=== PATIENT | male | born 1970 | race Caucasian/White ===

== ENCOUNTER 2017-02-01 22:46 | Emergency (ER) | payer OTHER, SELFPAY ==
[2017-02-01] MEDS ORDERED: BABY ASPIRIN 81 MG CHEW PO ONE (23:12)
[2017-02-01] MEDS ORDERED: Nitrostat 0.4 MG (ED) SL ONE ×3 (23:12→23:55)
[2017-02-01] MEDS ORDERED: Sodium Chloride 0.9% 1000 ML 1,000 ML IV SCH (23:15)
[2017-02-01] MEDS ORDERED: BABY ASPIRIN 81 MG CHEW ONE (23:18)
[2017-02-01] MEDS ORDERED: Sodium Chloride 0.9% 1000 ML 1,000 ML ONE (23:18)
[2017-02-01 23:22] LABS: BASOPHIL % 0.5 % (0.0-0.4); Eosinophil % 2.5 % (0.00-5.0); Lymphocytes % 34.1 % (24.0-44.0); Mean Cell Volume 93.3 fl (78-100); Mean Corpuscular Hemoglobin 31.6 pg (26-32); Mean Platelet Volume 12.4 fl (6-9.5); Monocytes % 8.9 % (0.0-12.0); Platelet Count 173 K/mm3 (150-450); Red Blood Count 4.49 M/mm3 (4.1-5.6); Red Cell Distribution Width 13.7 % (11.5-14.0)
--- NOTE | 2017-02-01 23:25 | ERPHSYRPT ---
- History of Present Illness Time Seen by Provider: 02/01/17 23:05 Source: patient Exam Limitations: no limitations Patient Subjective Stated Complaint: pt states hes been having chest pain for 2 days. states pain today radiated down lt arm and he began having shortness of breath. Triage Nursing Assessment: pt alert and oriented. answers questions approp. pt ambulatory with steady gait noted. skin pink, warm and dry. respirations nonlabored with lungs cta. heart rate 62 sinus rhthym on monitor with occasional pvc's noted. Physician History: FOR THE PAST 2 DAYS PT HAS HAD CONSTANT ACHY LEFT ANTERIOR CHEST PAIN WITH RADIATION TO THE LEFT WRIST AND BACK, SHORTNESS OF AIR AND DIZZINESS; DENIES FEVER, COUGH, ABDOMINAL PAIN, NAUSEA, VOMITING, DIAPHORESIS. Allergies/Adverse Reactions: Penicillins Allergy (Verified 02/01/17 23:03) Home Medications: No Home Meds 1 ea [facility] UD 02/01/17 [History] Hx Tetanus, Diphtheria Vaccination/Date Given: Yes (unknown) Hx Influenza Vaccination/Date Given: No Hx Pneumococcal Vaccination/Date Given: No Immunizations Up to Date: Yes - Review of Systems Constitutional: No Fever Respiratory: Dyspnea, No Cough Cardiac: Chest Pain Abdominal/Gastrointestinal: No Nausea, No Vomiting Musculoskeletal: Back Pain, Other (LEFT ARM PAIN) Neurological: Dizziness Endocrine: No Excessive Sweating All Other Systems: Reviewed and Negative - Past Medical History Pertinent Past Medical History: No Neurological History: Other - Past Surgical History Past Surgical History: Yes Gastrointestinal: Hernia Repair - Social History Smoking Status: Current every day smoker How long have you smoked: 22 Exposure to second hand smoke: Yes Drug Use: none Patient Lives Alone: No - Nursing Vital Signs Nursing Vital Signs: Initial Vital Signs Temperature 97.7 F Temperature Source Oral Pulse Rate [] 62 Pulse Rate 51 Respiratory Rate 20 Blood Pressure [] 104/63 Pain Intensity 4 - Physical Exam General Appearance: alert Eye Exam: PERRL/EOMI, eyes nml inspection Ears, Nose, Throat Exam: TMs normal, dry mucous membranes Neck Exam: normal inspection Respiratory Exam: lungs clear Cardiovascular Exam: normal heart sounds Gastrointestinal/Abdomen Exam: soft, normal bowel sounds Back Exam: normal range of motion Extremity Exam: normal inspection, No pedal edema Neurologic Exam: alert, cooperative Skin Exam: warm, dry SpO2 Interpretation: normal SpO2: 98 Oxygen Delivery: Room Air - Course Nursing assessment & vital signs reviewed: Yes EKG Interpreted by Me: RATE (60), Sinus Rhythm, NORMAL AXIS, NORMAL INTERVALS - Radiology Exams Chest X-ray Interpretation: Interpreted by me, No Pneumonia Ordered Tests: Active Orders 24 hr Category Date Time Status Warp Doffer STAT Care 02/01/17 23:12 Active EKG-ER Only STAT Care 02/01/17 23:12 Active IV Insertion STAT Care 02/01/17 23:12 Active Oxygen-ED Only NASAL CANNULA 2 lpm Care 02/01/17 23:12 Active Pulse Oximetry (ED) STAT Care 02/01/17 23:12 Active CHEST 1 VIEW (PORTABLE) Stat Exams 02/01/17 23:12 Taken AMYLASE Stat Lab 02/01/17 23:00 Completed CBC W DIFF Stat Lab 02/01/17 23:00 Completed CMP Stat Lab 02/01/17 23:00 Completed LIPASE Stat Lab 02/01/17 23:00 Completed MAGNESIUM Stat Lab 02/01/17 23:00 Completed NT PRO BNP Stat Lab 02/01/17 23:00 Completed TROPONIN Q3H Lab 02/01/17 23:00 Completed TROPONIN Q3H Lab 02/02/17 02:15 Ordered TROPONIN Q3H Lab 02/02/17 05:15 Ordered TROPONIN Q3H Lab 02/02/17 08:15 Ordered TROPONIN Q3H Lab 02/02/17 11:15 Ordered UA W/RFX UR CULTURE Stat Lab 02/01/17 01:25 Completed Urine Triage Profile Stat Lab 02/01/17 01:25 Received Medication Summary Generic Name Dose Route Start Last Admin Trade Name Freq PRN Reason Stop Dose Admin Sodium Chloride 1,000 mls @ 100 mls/hr 02/01/17 23:15 02/01/17 23:23 Sodium Chloride 0.9% 1000 Ml IV 03/03/17 23:14 100 mls/hr .Q10H RAND Administration Discontinued Medications Generic Name Dose Route Start Last Admin Trade Name Freq PRN Reason Stop Dose Admin Aspirin 324 mg 02/01/17 23:12 02/01/17 23:23 Baby Aspirin 81 Mg Chew PO 02/01/17 23:13 324 mg STAT ONE Administration Aspirin Confirm 02/01/17 23:18 Baby Aspirin 81 Mg Chew Administered 02/01/17 23:19 Dose 324 mg .ROUTE .STK-MED ONE Sodium Chloride 1,000 mls @ 999 mls/hr 02/02/17 00:07 Sodium Chloride 0.9% 1000 Ml IV 02/02/17 01:07 .Q1H1M STA Ketorolac Tromethamine 30 mg 02/02/17 01:29 02/02/17 01:32 Toradol 30 Mg Injection IV 02/02/17 01:30 30 mg STAT ONE Administration Ketorolac Tromethamine Confirm 02/02/17 01:31 Toradol 30 Mg Injection Administered 02/02/17 01:32 Dose 30 mg .ROUTE .STK-MED ONE Nitroglycerin 0.4 mg 02/01/17 23:12 02/01/17 23:23 Nitrostat 0.4 Mg (Ed) SL 02/01/17 23:13 0.4 mg STAT ONE Administration Nitroglycerin Confirm 02/01/17 23:18 Nitrostat 0.4 Mg (Ed) Administered 02/01/17 23:19 Dose 0.4 mg SL .STK-MED ONE Nitroglycerin 0.4 mg 02/01/17 23:55 02/01/17 23:58 Nitrostat 0.4 Mg (Ed) SL 02/01/17 23:56 0.4 mg STAT ONE Administration Nitroglycerin 0.4 mg 02/02/17 00:13 02/02/17 00:16 Nitrostat 0.4 Mg (Ed) SL 02/02/17 00:14 0.4 mg STAT ONE Administration Lab/Rad Data: Laboratory Result Diagrams 02/01/17 23:00 02/01/17 23:00 Laboratory Results 02/01/17 02/01/17 02/01/17 Range/Units 23:00 23:00 23:00 WBC 6.0 (4.0-10.5) K/mm3 RBC 4.49 (4.1-5.6) M/mm3 Hgb 14.2 (12.5-18.0) gm/dl Hct 41.9 L (42-50) % MCV 93.3 (78-100) fl MCH 31.6 (26-32) pg MCHC 33.9 (32-36) g/dl RDW 13.7 (11.5-14.0) % Plt Count 173 (150-450) K/mm3 MPV 12.4 H (6-9.5) fl Gran % 54.0 (36.0-66.0) % Lymphocytes % 34.1 (24.0-44.0) % Monocytes % 8.9 (0.0-12.0) % Eosinophils % 2.5 (0.00-5.0) % Basophils % 0.5 (0.0-0.4) % Basophils # 0.03 (0-0.4) Sodium 141 (136-145) mEq/L Potassium 3.8 (3.5-5.1) mEq/L Chloride 106 (98-107) mEq/L Carbon Dioxide 26.9 (21-32) mEq/L Anion Gap 11.4 (5-15) MEQ/L BUN 21 H (9-20) mg/dL Creatinine 1.17 (0.55-1.30) mg/dl Estimated GFR > 60 ML/MIN Glucose 100 (70-110) MG/DL Calcium 9.3 (8.5-10.1) mg/dL Magnesium 1.9 (1.8-2.4) mg/dL Total Bilirubin 0.70 (0.2-1.0) mg/dL AST 43 H (15-37) U/L ALT 93 H (12-78) U/L Alkaline Phosphatase 58 (46-116) U/L Troponin I < 0.017 (0.000-0.056) ng/ml NT-Pro-B Natriuret Pep 105 (0-125) pg/ml Serum Total Protein 7.7 (6.4-8.2) gm/dL Albumin 3.7 (3.4-5.0) g/dL Amylase 82 (25-115) U/L Lipase 142 (73-393) U/L Ur Collection Type Urine Color (YELLOW) Urine Appearance (CLEAR) Urine pH (5-6) Ur Specific [place] (1.005-1.025) Urine Protein (Negative) Urine Glucose (UA) (NEGATIVE) mg/dL Urine Ketones (NEGATIVE) Urine Nitrite (NEGATIVE) Urine Bilirubin (NEGATIVE) Urine Urobilinogen (0-1) mg/dL Urine WBC (Auto) (NEGATIVE) Urine RBC (Auto) (0-5) Quan/ul Specimen Received 02/01/17 Range/Units 01:25 WBC (4.0-10.5) K/mm3 RBC (4.1-5.6) M/mm3 Hgb (12.5-18.0) gm/dl Hct (42-50) % MCV (78-100) fl MCH (26-32) pg MCHC (32-36) g/dl RDW (11.5-14.0) % Plt Count (150-450) K/mm3 MPV (6-9.5) fl Gran % (36.0-66.0) % Lymphocytes % (24.0-44.0) % Monocytes % (0.0-12.0) % Eosinophils % (0.00-5.0) % Basophils % (0.0-0.4) % Basophils # (0-0.4) Sodium (136-145) mEq/L Potassium (3.5-5.1) mEq/L Chloride (98-107) mEq/L Carbon Dioxide (21-32) mEq/L Anion Gap (5-15) MEQ/L BUN (9-20) mg/dL Creatinine (0.55-1.30) mg/dl Estimated GFR ML/MIN Glucose (70-110) MG/DL Calcium (8.5-10.1) mg/dL Magnesium (1.8-2.4) mg/dL Total Bilirubin (0.2-1.0) mg/dL AST (15-37) U/L ALT (12-78) U/L Alkaline Phosphatase (46-116) U/L Troponin I (0.000-0.056) ng/ml NT-Pro-B Natriuret Pep (0-125) pg/ml Serum Total Protein (6.4-8.2) gm/dL Albumin (3.4-5.0) g/dL Amylase (25-115) U/L Lipase (73-393) U/L Ur Collection Type CLEAN CATCH Urine Color YELLOW (YELLOW) Urine Appearance CLEAR (CLEAR) Urine pH 5.5 (5-6) Ur Specific [place] >=1.030 (1.005-1.025) Urine Protein NEGATIVE (Negative) Urine Glucose (UA) NEGATIVE (NEGATIVE) mg/dL Urine Ketones NEGATIVE (NEGATIVE) Urine Nitrite NEGATIVE (NEGATIVE) Urine Bilirubin NEGATIVE (NEGATIVE) Urine Urobilinogen 2 (0-1) mg/dL Urine WBC (Auto) NEGATIVE (NEGATIVE) Urine RBC (Auto) NEGATIVE (0-5) Quan/ul Specimen Received 02/02/17 0130 - Departure Time of Disposition: 01:49 Departure Disposition: Home Clinical Impression: CHEST PAIN Condition: Fair Critical Care Time: No Referrals: DOCTOR,NO FAMILY [Primary Care Provider] - Instructions: Chest Pain Additional Instructions: FOLLOW UP WITH PRIVATE DOCTOR TOMORROW.
[2017-02-01 23:49] LABS: ALBUMIN 3.7 g/dL (3.4-5.0); ALKALINE PHOSPHATASE 58 U/L (46-116); ANION GAP 11.4 MEQ/L (5-15); BLOOD UREA NITROGEN 21 mg/dL (9-20); CHLORIDE 106 mEq/L (98-107); Carbon Dioxide 26.9 mEq/L (21-32); Glucose 100 MG/DL (70-110); LIPASE 142 U/L (73-393); MAGNESIUM 1.9 mg/dL (1.8-2.4); Potassium 3.8 mEq/L (3.5-5.1); SGOT/AST 43 U/L (15-37); SGPT/ALT 93 U/L (12-78); SODIUM 141 mEq/L (136-145); Total Protein 7.7 gm/dL (6.4-8.2)
[2017-02-02 00:07] VITALS: O2SAT 98
[2017-02-02] MEDS ORDERED: Sodium Chloride 0.9% 1000 ML 1,000 ML IV STA (00:07)
[2017-02-02] MEDS ORDERED: Nitrostat 0.4 MG (ED) SL ONE ×2 (00:13→02:14)
[2017-02-02] MEDS ORDERED: TORAdol 30 mg Injection IV ONE (01:29)
[2017-02-02] MEDS ORDERED: TORAdol 30 mg Injection ONE (01:31)
[2017-02-02 01:36] LABS: ADD URINE CULTURE? NO (NO); COMPLETE URINE MICROSCOPIC? NO; Collection Type CLEAN CATCH; Ph 5.5 (5-6)
[2017-02-02 01:37] VITALS: BP 104/63; PULSE 51
--- NOTE | 2017-02-02 09:50 | XRAY ---
Indication: Chest pain. Comparison: April 19, 2015. Portable chest again hyperinflated and clear with incidental calcified granulomas. Heart is not enlarged. Bony thorax intact. No new/acute findings. Impression: Stable nonacute hyperinflated chest.
== END 2017-02-02 01:55 | disposition home or self-care (01) ==
LOC: ED 22:46
DX: R07.89 Other chest pain (principal); R06.02 Shortness of breath
CPT/HCPCS: 36000; 36415; 71010; 80053; 80307; 81002; 82150; 83690; 83735; 83880; 84484; 85025; 93005; 93041; 96360; 96361; 96374; 96375; 99284; 99285; J1885; A9270-GY

== ENCOUNTER 2018-01-23 16:33 | Emergency (ER) | payer OTHER, SELFPAY ==
[2018-01-23 16:40] VITALS: BP 131/88; PULSE 52; O2SAT 100
[2018-01-23] MEDS ORDERED: TYLENOL EXTRA STRENGTH 500 MG ONE (17:07)
[2018-01-23] MEDS ORDERED: Adacel Vial IM ONE (17:08)
[2018-01-23] MEDS: Adacel Vial IM ONE (17:09)
[2018-01-23] MEDS: TYLENOL EXTRA STRENGTH 500 MG PO ONE (17:10)
--- NOTE | 2018-01-23 17:12 | ERPHSYRPT ---
- History of Present Illness Time Seen by Provider: 01/23/18 17:07 Source: patient Exam Limitations: no limitations Patient Subjective Stated Complaint: Hit in top of head with tree branch, concerned there might be debris in laceration on top of head. Denies LOC. Triage Nursing Assessment: Pt presents to the ED with complaints of laceration on top of head after getting hit by tree branch. Pt states he is only concerned with debris being in wound. No distress noted, no active bleeding noted, skin PWD. Pt denies loss of consciousness. Physician History: Patient presents with small puncture wound to the top of head, that occurred approximately one hour prior to arrival. Patient states he was getting out of his car and there was a tree close by. Patient pulled on the tree and a small branch hit the top of his head resulting in a small puncture wound. Patient noted there was some bleeding initially but that has stopped. Patient denies any loss of consciousness, dizziness, nausea, vomiting, focal/facial symptoms or blurred vision. Patient did have mild headache but denies any other injuries at this time.. Patient last tetanus was more than 10 years ago. Occurred: just prior to arrival Severity: mild Head Injury Location: parietal Method of Injury: direct blow (stab by a small branch) Loss of Consciousness: no loss of consciousness Associated Symptoms: headaches, No nausea, No vomiting, No shortness of breath, No diaphoresis, No loss of appetite, No malaise, No syncope Allergies/Adverse Reactions: Penicillins Allergy (Verified 02/01/17 23:03) Home Medications: No Home Meds [No Home Meds] 1 [facility] TO[facility]A 02/01/17 [History] Hx Tetanus, Diphtheria Vaccination/Date Given: No Hx Influenza Vaccination/Date Given: No Hx Pneumococcal Vaccination/Date Given: No Immunizations Up to Date: No - Review of Systems Constitutional: No Fever, No Chills Eyes: No Symptoms Ears, Nose, & Throat: No Symptoms Respiratory: No Symptoms, No Cough, No Dyspnea Cardiac: No Symptoms, No Chest Pain, No Edema, No Syncope Abdominal/Gastrointestinal: No Symptoms, No Abdominal Pain, No Nausea, No Vomiting, No Diarrhea Genitourinary Symptoms: No Dysuria Musculoskeletal: No Symptoms, No Back Pain, No Neck Pain Skin: Other (small puncture wound on top of head), No Rash Neurological: No Dizziness, No Focal Weakness, No Sensory Changes Psychological: No Symptoms Endocrine: No Symptoms All Other Systems: Reviewed and Negative - Past Medical History Pertinent Past Medical History: No Neurological History: Other - Past Surgical History Past Surgical History: Yes Gastrointestinal: Hernia Repair - Social History Smoking Status: Current every day smoker How long have you smoked: 25 years Exposure to second hand smoke: Yes Drug Use: none Patient Lives Alone: No - Nursing Vital Signs Nursing Vital Signs: Initial Vital Signs Temperature 98.7 F 01/23/18 16:37 Pulse Rate 52 L 01/23/18 16:37 Respiratory Rate 15 01/23/18 16:37 Blood Pressure 131/88 01/23/18 16:37 O2 Sat by Pulse Oximetry 100 01/23/18 16:37 Pain Scale Pain Intensity 8 - Neil Coma Score Best Eye Response (Hope): (4) open spontaneously Best Verbal Response (Neil): (5) oriented Best Motor Response (Hope): (6) obeys commands Hope Total: 15 - Physical Exam General Appearance: no apparent distress, alert Head Injury: tenderness (rotation tendernesswith small puncture wound to top of head, no active bleeding at this time), No active bleeding, No Fitzgerald's Sign, No contusions Eye Exam: bilateral eye: PERRL, EOMI ENT Exam: airway nml Neck Exam: supple, trachea midline, full range of motion, normal alignment, normal inspection Cardiovascular/Respiratory Exam: chest non-tender, normal breath sounds, regular rate/rhythm Gastrointestinal/Abdominal Exam: soft, non tender, no distention Back Exam: normal inspection, No vertebral tenderness Extremity Exam: non-tender, normal range of motion, normal inspection Mental Status Exam: alert, oriented x 3, 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 Exam: normal hearing, normal speech, PERRL Motor/Sensory Exam: no motor deficit, no sensory deficit, CN II-XII intact Skin Exam: normal color, warm, dry, No rash SpO2 Interpretation: normal SpO2: 100 Oxygen Delivery: Room Air - Course Nursing assessment & vital signs reviewed: Yes Ordered Tests: Medication Summary Discontinued Medications Generic Name Dose Route Start Last Admin Trade Name Freq PRN Reason Stop Dose Admin Acetaminophen 1,000 mg 01/23/18 17:04 Tylenol Extra Strength 500 Mg PO 01/23/18 17:05 STAT ONE Diphtheria/Tetanus/Acell Pertussis 0.5 ml 01/23/18 17:04 Adacel Vial IM 01/23/18 17:05 .ONCE ONE - Progress Progress: improved Progress Note: 01/23/18 17:14 patient was updated with tetanus, along with Tylenol 1 g by mouth Counseled pt/family regarding: diagnosis - Departure Time of Disposition: 17:14 Departure Disposition: Home Clinical Impression: Puncture wound of scalp Condition: Stable Critical Care Time: No Referrals: DOCTOR,NO FAMILY [Primary Care Provider] - Instructions: Concussion, Adult (DC), Wound Care (DC) Additional Instructions: may take MotrinTylenol for pain/swelling. Return for worse headache, vomiting, dizziness, altered mental status, difficulty speaking, focal or fascial deficit or any problems
== END 2018-01-23 17:28 | disposition home or self-care (01) ==
LOC: ED 16:33
DX: S01.03XA Puncture wound without foreign body of scalp, initial encounter (principal); R51 Headache; W20.8XXA Other cause of strike by thrown, projected or falling object, initial encounter
CPT/HCPCS: 90471; 90715; 99283; A9270-GY

== ENCOUNTER 2018-05-26 19:38 | Emergency (ER) | payer OTHER ==
[2018-05-26] MEDS ORDERED: Zofran 4 MG/2 ML VIAL IV ONE (20:21)
[2018-05-26] MEDS ORDERED: Hydromorphone 1 mg/ml Ampule IV ONE (20:21)
--- NOTE | 2018-05-26 20:28 | ERPHSYRPT ---
- History of Present Illness Time Seen by Provider: 05/26/18 20:10 Historian: patient Exam Limitations: clinical condition Patient Subjective Stated Complaint: Pain for past week in lower left abdominal quadrant Triage Nursing Assessment: pt c/o of pain in the lower left abdominal quadrant, stated that he had picked a big piece of wood up and it began hurting after, hx of hernia on other side in the 90's, pain with palpation, denies pain with urination, denies flank pain, vitals wnl, pulses normal Physician History: PATIENT WITH A HISTORY OF HERNIA REPAIR IN THE PAST, IS EMPLOYED WITH A [employer] SERVICE, PICKED UP TREE 6 DAYS AGO AND HAS PERSISTENT LEFT LOWER ABDOMINAL PAIN. STATES PAIN INITIALLY WORSE UPON LIFTING NOW OCCURS AT REST. DENIES NAUSEA, EMESIS, URINARY SYMPTOMS, FEVER OR DIARRHEA. Timing/Duration: week(s) Activities at Onset: activity Quality: sharpness, stabbing Abdominal Pain Onset Location: LLQ Severity of Pain-Max: severe Severity of Pain-Current: severe Modifying Factors: Improves With: movement, other (LIFTING) Associated Symptoms: denies symptoms Previous symptoms: no prior history Allergies/Adverse Reactions: Penicillins Allergy (Verified 05/26/18 20:09) Home Medications: No Home Meds [No Home Meds] 1 [facility] 02/01/17 [History] Hx Tetanus, Diphtheria Vaccination/Date Given: No Hx Influenza Vaccination/Date Given: No Hx Pneumococcal Vaccination/Date Given: No - Review of Systems Constitutional: No Fever, No Chills Eyes: No Symptoms Ears, Nose, & Throat: No Symptoms Respiratory: No Cough, No Dyspnea Cardiac: No Chest Pain, No Edema, No Syncope Abdominal/Gastrointestinal: Abdominal Pain, No Nausea, No Vomiting, No Diarrhea Genitourinary Symptoms: No Symptoms, No Dysuria Musculoskeletal: No Symptoms, No Back Pain, No Neck Pain Skin: No Symptoms, No Rash Neurological: No Dizziness, No Focal Weakness, No Sensory Changes Psychological: No Symptoms Endocrine: No Symptoms All Other Systems: Reviewed and Negative - Past Medical History Pertinent Past Medical History: No Neurological History: Other - Past Surgical History Past Surgical History: Yes Gastrointestinal: Hernia Repair Musculoskeletal: Orthopedic Surgery - Social History Smoking Status: Current every day smoker How long have you smoked: 25 years Exposure to second hand smoke: Yes Drug Use: marijuana Patient Lives Alone: No - Nursing Vital Signs Nursing Vital Signs: Initial Vital Signs Temperature 98.0 F 05/26/18 19:53 Pulse Rate 65 05/26/18 19:53 Blood Pressure 115/74 05/26/18 19:53 O2 Sat by Pulse Oximetry 97 05/26/18 19:53 Pain Scale Pain Intensity 4 - Physical Exam General Appearance: mild distress, alert Eye Exam: PERRL/EOMI, eyes nml inspection Ears, Nose, Throat Exam: normal ENT inspection, pharynx normal, moist mucous membranes Neck Exam: normal inspection, non-tender, supple, full range of motion Respiratory Exam: normal breath sounds, lungs clear, No respiratory distress Cardiovascular Exam: regular rate/rhythm, normal heart sounds, other (THERE IS NO GUARDING OR REBOUND TENDERNESS) Gastrointestinal/Abdomen Exam: soft, normal bowel sounds, No tenderness (LEFT LOWER QUAD, MARKED TENDERNESS), No mass Back Exam: normal inspection, normal range of motion, No CVA tenderness, No vertebral tenderness Extremity Exam: normal inspection, normal range of motion, pelvis stable Neurologic Exam: alert, oriented x 3, cooperative, normal mood/affect, nml cerebellar function, sensation nml, No motor deficits Skin Exam: normal color, warm, dry SpO2 Interpretation: normal SpO2: 97 Oxygen Delivery: Room Air - CT Exams Abdomen/Pelvis CT Interpretation: Tele-radiologist Report (NORMAL APPENDIX, NO ACUTE FINDINGS) Ordered Tests: Medication Summary Discontinued Medications Generic Name Dose Route Start Last Admin Trade Name Freq PRN Reason Stop Dose Admin Hydromorphone HCl 1 mg 05/26/18 20:21 05/26/18 21:00 Hydromorphone 1 Mg/Ml Ampule IV 05/26/18 20:22 1 mg STAT ONE Administration Hydromorphone HCl Confirm 05/26/18 20:40 Hydromorphone 1 Mg/Ml Ampule Administered 05/26/18 20:41 Dose 1 mg .ROUTE .STK-MED ONE Sodium Chloride 1,000 mls @ 500 mls/hr 05/26/18 20:30 05/26/18 21:01 Sodium Chloride 0.9% 1000 Ml IV 06/25/18 20:29 500 mls/hr .Q2H RAND Administration Sodium Chloride Confirm 05/26/18 20:40 Sodium Chloride 0.9% 1000 Ml Administered 05/26/18 20:41 Dose 1,000 mls @ ud .ROUTE .STK-MED ONE Ketorolac Tromethamine 30 mg 05/26/18 22:55 05/26/18 23:03 Toradol 30 Mg Injection IV 05/26/18 22:56 30 mg STAT ONE Administration Ketorolac Tromethamine Confirm 05/26/18 23:02 Toradol 30 Mg Injection Administered 05/26/18 23:03 Dose 30 mg .ROUTE .STK-MED ONE Ondansetron HCl 4 mg 05/26/18 20:21 05/26/18 21:01 Zofran 4 Mg/2 Ml Vial IV 05/26/18 20:22 4 mg STAT ONE Administration Ondansetron HCl Confirm 05/26/18 20:40 Zofran 4 Mg/2 Ml Vial Administered 05/26/18 20:41 Dose 4 mg .ROUTE .STK-MED ONE Lab/Rad Data: Laboratory Result Diagrams 05/26/18 21:00 05/26/18 21:00 Laboratory Results 05/26/18 05/26/18 05/26/18 Range/Units 21:00 21:00 20:36 WBC 7.2 (4.0-10.5) K/mm3 RBC 4.42 (4.1-5.6) M/mm3 Hgb 14.6 (12.5-18.0) gm/dl Hct 42.1 (42-50) % MCV 95.2 (78-100) fl MCH 33.0 H (26-32) pg MCHC 34.7 (32-36) g/dl RDW 13.5 (11.5-14.0) % Plt Count 193 (150-450) K/mm3 MPV 11.9 H (6-9.5) fl Gran % 51.0 (36.0-66.0) % Eos # (Auto) 0.31 (0-0.5) Absolute Lymphs (auto) 2.42 (1.0-4.6) Absolute Monos (auto) 0.78 (0.0-1.3) Lymphocytes % 33.5 (24.0-44.0) % Monocytes % 10.8 (0.0-12.0) % Eosinophils % 4.3 (0.00-5.0) % Basophils % 0.4 (0.0-0.4) % Absolute Granulocytes 3.69 (1.4-6.9) Basophils # 0.03 (0-0.4) Sodium 137 (137-145) mmol/L Potassium 5.1 (3.5-5.1) mmol/L Chloride 103 (98-107) mmol/L Carbon Dioxide 27 (22-30) mmol/L Anion Gap 12.3 (5-15) MEQ/L BUN 28 H (9-20) mg/dL Creatinine 0.96 (0.66-1.25) mg/dL Estimated GFR > 60.0 ML/MIN Glucose 103 (74-106) mg/dL Calcium 9.1 (8.4-10.2) mg/dL Ur Collection Type VOID Urine Color YELLOW (YELLOW) Urine Appearance CLEAR (CLEAR) Urine pH 6.5 (5-6) Ur Specific [place] 1.020 (1.005-1.025) Urine Protein NEGATIVE (Negative) Urine Ketones SMALL (NEGATIVE) Urine Blood NEGATIVE (0-5) Quan/ul Urine Nitrite NEGATIVE (NEGATIVE) Urine Bilirubin NEGATIVE (NEGATIVE) Urine Urobilinogen 4 (0-1) mg/dL Ur Leukocyte Esterase NEGATIVE (NEGATIVE) Urine Microscopic WBC 0-2 (0-5) /HPF Ur Epithelial Cells RARE (FEW) /HPF Urine Culture Reflexed NO (NO) Urine Glucose NEGATIVE (NEGATIVE) mg/dL - Progress Progress: improved Progress Note: 05/26/18 23:02 IV NORMAL SALINE 500ML/HR, ZOFRAN 4MG, DILAUDID 1MG IV ALL LAB TEST REVIEWED AND ARE NORMAL Counseled pt/family regarding: lab results, diagnosis, need for follow-up, rad results - Departure Time of Disposition: 23:16 Departure Disposition: Home Clinical Impression: ABDOMINAL PAIN Condition: Stable Critical Care Time: No Referrals: DOCTOR,NO FAMILY [Primary Care Provider] - Additional Instructions: FOLLOWUP WITH A FAMILY PHYSICIAN AND GENERAL SURGEON FOR EVALUATION OF HERNIA. WORK RESTRICTION NO LIFTING OVER Prescriptions: Ketorolac Tromethamine [Toradol] 10 mg PO Q6H PRN PRN #20 tablet PRN Reason: Pain Oxycodone HCl/Acetaminophen [Percocet 10-325 mg Tablet] 1 each PO Q6HPRN PRN # 10 tablet MDD 4 PRN Reason: Pain
[2018-05-26] MEDS ORDERED: Sodium Chloride 0.9% 1000 ML 1,000 ML IV SCH (20:30)
[2018-05-26] MEDS ORDERED: Hydromorphone 1 mg/ml Ampule ONE (20:40)
[2018-05-26] MEDS ORDERED: Zofran 4 MG/2 ML VIAL ONE (20:40)
[2018-05-26] MEDS ORDERED: Sodium Chloride 0.9% 1000 ML 1,000 ML ONE (20:40)
[2018-05-26 21:05] VITALS: PULSE 64
[2018-05-26 21:29] LABS: BASOPHIL % 0.4 % (0.0-0.4); Basophil (Absolute #) 0.03 (0-0.4); Eosinophil % 4.3 % (0.00-5.0); Eosinophil (Absolute #) 0.31 (0-0.5); Granulocyte Absolute (ANC) 3.69 (1.4-6.9); Hematocrit 42.1 % (42-50); Hemoglobin 14.6 gm/dl (12.5-18.0); Lymphocyte (Absolute #) 2.42 (1.0-4.6); Lymphocytes % 33.5 % (24.0-44.0); Mean Cell Volume 95.2 fl (78-100); Mean Corpuscular Hgb Concent. 34.7 g/dl (32-36); Mean Platelet Volume 11.9 fl (6-9.5); Monocyte (Absolute #) 0.78 (0.0-1.3); Monocytes % 10.8 % (0.0-12.0); Platelet Count 193 K/mm3 (150-450); Red Blood Count 4.42 M/mm3 (4.1-5.6); Red Cell Distribution Width 13.5 % (11.5-14.0); White Blood Count 7.2 K/mm3 (4.0-10.5)
[2018-05-26 21:30] LABS: Appearance CLEAR (CLEAR)
[2018-05-26 21:31] LABS: Bilirubin NEGATIVE (NEGATIVE); Blood NEGATIVE Ery/ul (0-5); Epithelial Cells RARE /HPF (FEW); Glucose NEGATIVE (NEGATIVE); Ketones SMALL (NEGATIVE); Leukocyte Esterase NEGATIVE (NEGATIVE); Nitrite NEGATIVE (NEGATIVE); Ph 6.5 (5-6); Protein,Urine Dip NEGATIVE (Negative); Urobilinogen 4 mg/dL (0-1); WBC 0-2 /HPF (0-5)
[2018-05-26 21:48] LABS: ANION GAP 12.3 MEQ/L (5-15); BLOOD UREA NITROGEN 28 mg/dL (9-20); CHLORIDE 103 mmol/L (98-107); Calcium 9.1 mg/dL (8.4-10.2); Carbon Dioxide 27 mmol/L (22-30); Creatinine 1 0.96 mg/dL (0.66-1.25); Glucose 103 mg/dL (74-106); Potassium 5.1 mmol/L (3.5-5.1); SODIUM 137 mmol/L (137-145)
[2018-05-26] MEDS ORDERED: TORAdol 30 mg Injection IV ONE (22:55)
[2018-05-26] MEDS ORDERED: TORAdol 30 mg Injection ONE (23:02)
[2018-05-26 23:07] VITALS: O2SAT 97
[2018-05-26 23:13] VITALS: BP 115/75
--- NOTE | 2018-05-27 08:45 | XRAY ---
Indication: Left lower quadrant pain. Multiple contiguous axial images obtained through the abdomen and pelvis using 80 cc Isovue 370 contrast only. Comparison: November 16, 2007. Lung bases demonstrates minimal bibasilar dependent atelectasis. No infiltrate or effusion. Heart is not enlarged. Stomach is distended with food/fluid. Noncontrasted stomach and bowel loops appear nonobstructed. Normal appendix. Mild diffuse scattered colonic fecal debris throughout. No free fluid/air. Stable chunky right adrenal calcifications presumed benign given stability over the years. Spleen is enlarged measuring 12.9 cm in greatest axial dimension. Remaining liver, gallbladder, pancreas, spleen, left adrenal gland, kidneys, ureters, bladder, and aorta appear unremarkable. No pathologic retroperitoneal lymphadenopathy. Osseous structures intact with stable benign right innominate bone lytic lesion. New mild L4-L5 degenerative disc space loss and endplate spurring. Impression: 1. Fecal stasis without obstruction. 2. Incidental splenomegaly and stable benign right adrenal calcifications. 3. Remaining CT abdomen/pelvis with contrast exam is negative. Comment: Preliminary interpretation was made by [facility]. No critical discrepancy. CT DI 14.77
== END 2018-05-26 23:28 | disposition home or self-care (01) ==
LOC: ED 19:38
DX: R10.32 Left lower quadrant pain (principal)
CPT/HCPCS: 36000; 36415; 74177; 80048; 81000; 85025; 87040; 96360; 96374; 96375; 99284; J1170; J1885; J2405

== ENCOUNTER 2018-11-05 01:14 | Emergency (ER) | payer OTHER ==
[2018-11-05 01:35] VITALS: BP 136/83; O2SAT 98
--- NOTE | 2018-11-05 01:41 | ERPHSYRPT ---
- History of Present Illness Time Seen by Provider: 11/05/18 01:41 Source: patient Exam Limitations: no limitations Patient Subjective Stated Complaint: pt reports cough and chest congestion starting yesterday. pt also reports a sharp pain across his knee when coughing. pt states he also has pain with coughing. pt reports exposure to friend with flu. Triage Nursing Assessment: pt is aox3, pupils perrl, afebrile, resps easy and non labored, lung sounds are clear throughout, persistent, dry cough noted upon exam. radial pulses strong and equal, pt skin pink warm dry. Physician History: The patient is a 47-year-old male complaining of a cough, chills, and severe muscle aches that began about 1 day ago. He denies vomiting. He did not receive an influenza vaccine this year. He lives with another male and female. The male has the same signs and symptoms that began one day before the patient developed his. The other male did not get an influenza vaccination. The female is not ill and she did receive the influenza vaccination. The patient declines a chest x-ray and would like Tamiflu. Timing/Duration: yesterday, constant, sudden Cough Quality/Degree: moderate, dry cough Possible Cause: no prior episodes Modifying Factors: Improves With: coughing Associated Symptoms: chills, cough, muscle aches Allergies/Adverse Reactions: Penicillins Allergy (Verified 11/05/18 01:35) Hx Tetanus, Diphtheria Vaccination/Date Given: No Hx Influenza Vaccination/Date Given: No Hx Pneumococcal Vaccination/Date Given: No Immunizations Up to Date: Yes - Review of Systems Constitutional: Chills Eyes: No Symptoms Ears, Nose, & Throat: No Symptoms Respiratory: Cough Cardiac: No Chest Pain, No Edema, No Syncope Abdominal/Gastrointestinal: No Abdominal Pain, No Nausea, No Vomiting, No Diarrhea Genitourinary Symptoms: No Dysuria Musculoskeletal: No Back Pain, No Neck Pain Skin: No Rash Neurological: No Dizziness, No Focal Weakness, No Sensory Changes Psychological: No Symptoms Endocrine: No Symptoms Hematologic/Lymphatic: No Symptoms Immunological/Allergic: No Symptoms All Other Systems: Reviewed and Negative - Past Medical History Pertinent Past Medical History: No Neurological History: Other - Past Surgical History Past Surgical History: Yes Gastrointestinal: Hernia Repair Musculoskeletal: Orthopedic Surgery - Social History Smoking Status: Current every day smoker How long have you smoked: 25 Exposure to second hand smoke: Yes Drug Use: none Patient Lives Alone: No - Nursing Vital Signs Nursing Vital Signs: Initial Vital Signs Temperature 99.4 F 11/05/18 01:25 Pulse Rate 76 11/05/18 01:25 Respiratory Rate 20 11/05/18 01:25 Blood Pressure 136/83 11/05/18 01:25 O2 Sat by Pulse Oximetry 98 11/05/18 01:25 Pain Scale Pain Intensity 0 - Physical Exam General Appearance: moderate distress Eye Exam: PERRL/EOMI, eyes nml inspection Ears, Nose, Throat Exam: pharyngeal erythema Neck Exam: normal inspection, non-tender, supple, full range of motion Respiratory Exam: normal breath sounds, lungs clear, No respiratory distress Cardiovascular Exam: regular rate/rhythm, normal heart sounds Gastrointestinal/Abdomen Exam: soft, No tenderness Rectal Exam: not done Back Exam: normal inspection, No CVA tenderness, No vertebral tenderness Extremity Exam: normal inspection, normal range of motion Neurologic Exam: alert, oriented x 3, cooperative, normal mood/affect, sensation nml, No motor deficits Skin Exam: normal color, warm, dry, No rash Lymphatic Exam: No adenopathy SpO2 Interpretation: normal SpO2: 98 O2 Delivery: Room Air - Progress Progress: improved Progress Note: 11/05/18 02:03 pt given toradol 60 mg IM and tamiflu 75 mg po. Declines CXR. Counseled pt/family regarding: diagnosis - Departure Time of Disposition: 02:04 Departure Disposition: Home Clinical Impression: Influenza Condition: Stable Critical Care Time: No Referrals: DOCTOR,NO FAMILY [Primary Care Provider] - Additional Instructions: You have an influenza infection. You were given Toradol 60 mg by IM and Tamiflu 75 mg orally in the ER. Continue with Tamiflu 75 mg 2 times a day for total 5 days. Take Tylenol and ibuprofen as needed for pain. Stay well- hydrated. Follow-up with your primary medical doctor as needed. Prescriptions: Oseltamivir 75 mg [Tamiflu 75MG Capsule] 75 mg PO BID #9 cap
[2018-11-05] MEDS ORDERED: Tamiflu 75MG Capsule PO ONE ×2 (02:04→02:07)
[2018-11-05] MEDS ORDERED: TORAdol 30 mg Injection IM ONE (02:04)
[2018-11-05] MEDS ORDERED: TORAdol 30 mg Injection ONE (02:07)
[2018-11-05 02:31] VITALS: PULSE 78
== END 2018-11-05 02:27 | disposition home or self-care (01) ==
LOC: ED 01:14
DX: J10.1 Influenza due to other identified influenza virus with other respiratory manifestations (principal)
CPT/HCPCS: 96372; 99283; J1885; A9270-GY

== ENCOUNTER 2019-04-30 07:41 | Emergency (ER) | payer OTHER | END 2019-04-30 09:27 | disposition home or self-care (01) | LOC: ED 07:41 ==

== ENCOUNTER 2019-08-12 15:01 | Emergency (ER) | payer MEDICAID, OTHER ==
[2019-08-12] MEDS ORDERED: Sodium Chloride 0.9% 1000 ML 1,000 ML IV STA (15:38)
[2019-08-12] MEDS ORDERED: Zofran 4 MG/2 ML VIAL IV STA (15:38)
--- NOTE | 2019-08-12 15:38 | ERPHSYRPT ---
- History of Present Illness Time Seen by Provider: 08/12/19 15:30 Source: patient Exam Limitations: no limitations Patient Subjective Stated Complaint: SEVERE H/A IN BACK OF HEAD. PATIENT STATES PAIN IS INTERMITTENT WITH PAIN LEVEL AT 7. PATIENT STATES HE DID NOT TAKE ANYTHING AT HOME FOR PAIN. PATIENT STATES BECOME DIZZY EARLIER TODAY AND HAS HAD NAUSEA ALL DAY WITH NO VOMITING. Triage Nursing Assessment: PATIENT AMBULATED TO ROOM. GAIT STEADY. BILATERAL PUPILS EQUAL AND REACTIVE TO LIGHT. PATIENT FOLLOWS COMMANDS WITHOUT DIFFICULTY. SKIN COLOR WARM AND SKIN COLOR WNL. PATIENTS DENIES ANY TRAUMA TO HEAD. PATIENTS SPOUSE AT BEDSIDE Physician History: 48 y/o white male presents with headache, nausea, dry heaves and generalized body aches. began at 0300 this am. no known exposures to anyone with similar complaints. denies neck pain, denies cp, denies cough, denies fever, and denies abd pain and diarrhea. Timing/Duration: today Cough Quality/Degree: no cough Possible Cause: no prior episodes Associated Symptoms: headache, muscle aches, No fever, No chills, No chest pain/ soreness, No cough, No dizziness, No shortness of breath, No sore throat Allergies/Adverse Reactions: Penicillins Allergy (Verified 08/12/19 15:28) Hx Tetanus, Diphtheria Vaccination/Date Given: No Hx Influenza Vaccination/Date Given: Yes Hx Pneumococcal Vaccination/Date Given: No - Review of Systems Constitutional: Malaise Eyes: No Symptoms Ears, Nose, & Throat: No Symptoms Respiratory: No Symptoms Cardiac: No Symptoms Abdominal/Gastrointestinal: Nausea, No Vomiting, No Diarrhea Genitourinary Symptoms: No Symptoms Musculoskeletal: Arthralgias, Myalgias Skin: No Symptoms Neurological: Headache Psychological: No Symptoms Endocrine: No Symptoms Hematologic/Lymphatic: No Symptoms Immunological/Allergic: No Symptoms All Other Systems: Reviewed and Negative - Past Medical History Pertinent Past Medical History: No Neurological History: Other ENT History: No Pertinent History Cardiac History: No Pertinent History Respiratory History: No Pertinent History Endocrine Medical History: No Pertinent History Musculoskeletal History: No Pertinent History GI Medical History: No Pertinent History History: No Pertinent History Psycho-Social History: No Pertinent History Male Reproductive Disorders: No Pertinent History - Past Surgical History Past Surgical History: Yes Neuro Surgical History: No Pertinent History Cardiac: No Pertinent History Respiratory: No Pertinent History Gastrointestinal: Hernia Repair Genitourinary: No Pertinent History Musculoskeletal: Orthopedic Surgery Male Surgical History: No Pertinent History - Social History Smoking Status: Current every day smoker How long have you smoked: 25 YEARS Exposure to second hand smoke: No Drug Use: none Patient Lives Alone: No - Nursing Vital Signs Nursing Vital Signs: Initial Vital Signs Temperature 97.7 F 08/12/19 15:08 Pulse Rate 64 08/12/19 15:08 Respiratory Rate 18 08/12/19 15:08 Blood Pressure 134/86 08/12/19 15:08 O2 Sat by Pulse Oximetry 97 08/12/19 15:08 Pain Scale Pain Intensity 7 - Physical Exam General Appearance: no apparent distress, alert, anxiety Eye Exam: PERRL/EOMI, eyes nml inspection Ears, Nose, Throat Exam: normal ENT inspection, moist mucous membranes Neck Exam: normal inspection, non-tender, supple, full range of motion, No meningismus, No lymphadenopathy Respiratory Exam: normal breath sounds, lungs clear, airway intact, No chest tenderness, No respiratory distress Cardiovascular Exam: regular rate/rhythm, normal heart sounds, normal peripheral pulses Gastrointestinal/Abdomen Exam: soft, normal bowel sounds, No tenderness Rectal Exam: not done Back Exam: normal inspection, normal range of motion, No CVA tenderness, No vertebral tenderness Extremity Exam: normal inspection, normal range of motion, pelvis stable Neurologic Exam: alert, oriented x 3, cooperative, billing specialist II-XII nml as tested Skin Exam: normal color, warm, dry Lymphatic Exam: No adenopathy SpO2 Interpretation: normal SpO2: 97 O2 Delivery: Room Air - Course Nursing assessment & vital signs reviewed: Yes Ordered Tests: Active Orders 24 hr Category Date Time Status IV Insertion STAT Care 08/12/19 15:38 Active CBC W DIFF Stat Lab 08/12/19 16:00 Completed CMP Stat Lab 08/12/19 16:00 Completed [place] Screen Stat Lab 08/12/19 16:00 Completed UA W/RFX UR CULTURE Stat Lab 08/12/19 15:45 Completed Medication Summary Discontinued Medications Generic Name Dose Route Start Last Admin Trade Name Freq PRN Reason Stop Dose Admin Hydromorphone HCl 0.5 mg 08/12/19 15:39 08/12/19 16:19 Hydromorphone 1 Mg/Ml Ampule IV 08/12/19 15:40 0.5 mg STAT ONE Administration Hydromorphone HCl Confirm 08/12/19 16:13 Hydromorphone 1 Mg/Ml Ampule Administered 08/12/19 16:14 Dose 1 mg .ROUTE .STK-MED ONE Sodium Chloride 1,000 mls @ 999 mls/hr 08/12/19 15:38 08/12/19 16:18 Sodium Chloride 0.9% 1000 Ml IV 08/12/19 16:38 999 mls/hr .Q1H1M STA Administration Sodium Chloride Confirm 08/12/19 16:13 Sodium Chloride 0.9% 1000 Ml Administered 08/12/19 16:14 Dose 1,000 mls @ ud .ROUTE .STK-MED ONE Ondansetron HCl 4 mg 08/12/19 15:38 08/12/19 16:25 Zofran 4 Mg/2 Ml Vial IV 08/12/19 15:39 4 mg STAT STA Administration Ondansetron HCl Confirm 08/12/19 16:13 Zofran 4 Mg/2 Ml Vial Administered 08/12/19 16:14 Dose 4 mg .ROUTE .STK-MED ONE Lab/Rad Data: Laboratory Result Diagrams 08/12/19 16:00 08/12/19 16:00 Laboratory Results 08/12/19 08/12/19 08/12/19 Range/Units 16:00 16:00 16:00 WBC (4.0-10.5) K/mm3 RBC (4.1-5.6) M/mm3 Hgb (12.5-18.0) gm/dl Hct (42-50) % MCV (78-100) fl MCH (26-32) pg MCHC (32-36) g/dl RDW (11.5-14.0) % Plt Count (150-450) K/mm3 MPV (6-9.5) fl Gran % (36.0-66.0) % Eos # (Auto) (0-0.5) Absolute Lymphs (auto) (1.0-4.6) Absolute Monos (auto) (0.0-1.3) Lymphocytes % (24.0-44.0) % Monocytes % (0.0-12.0) % Eosinophils % (0.00-5.0) % Basophils % (0.0-0.4) % Absolute Granulocytes (1.4-6.9) Basophils # (0-0.4) Sodium 140 (137-145) mmol/L Potassium 3.9 (3.5-5.1) mmol/L Chloride 107 (98-107) mmol/L Carbon Dioxide 26 (22-30) mmol/L Anion Gap 10.5 (5-15) MEQ/L BUN 16 (9-20) mg/dL Creatinine 0.90 (0.66-1.25) mg/dL Estimated GFR > 60.0 ML/MIN Glucose 99 (74-106) mg/dL Calcium 9.7 (8.4-10.2) mg/dL Total Bilirubin 0.70 (0.2-1.3) mg/dL AST 38 (17-59) U/L ALT 50 (0-50) U/L Alkaline Phosphatase 67 (38-126) U/L Serum Total Protein 8.0 (6.3-8.2) g/dL Albumin 4.1 (3.5-5.0) g/dL Urine Color (YELLOW) Urine Appearance (CLEAR) Urine pH (5-6) Ur Specific [place] (1.005-1.025) Urine Protein (Negative) Urine Ketones (NEGATIVE) Urine Blood (0-5) Quan/ul Urine Nitrite (NEGATIVE) Urine Bilirubin (NEGATIVE) Urine Urobilinogen (0-1) mg/dL Ur Leukocyte Esterase (NEGATIVE) Urine WBC (Auto) (0-5) /HPF Urine RBC (Auto) (0-2) /HPF U Epithel Cells (Auto) (FEW) /HPF Urine Bacteria (Auto) (NEGATIVE) /HPF Urine Mucus (Auto) (NEGATIVE) /HPF Urine Culture Reflexed (NO) Urine Glucose (NEGATIVE) mg/dL Monoscreen NEGATIVE (Negative) Influenza Type A Ag NEGATIVE (NEGATIVE) Influenza Type B Ag NEGATIVE (NEGATIVE) RSV (PCR) NEGATIVE (Negative) Group A Strep Antibody NEGATIVE (NEGATIVE) 08/12/19 08/12/19 Range/Units 16:00 15:45 WBC 10.1 (4.0-10.5) K/mm3 RBC 4.79 (4.1-5.6) M/mm3 Hgb 15.3 (12.5-18.0) gm/dl Hct 43.9 (42-50) % MCV 91.6 (78-100) fl MCH 31.9 (26-32) pg MCHC 34.9 (32-36) g/dl RDW 12.7 (11.5-14.0) % Plt Count 179 (150-450) K/mm3 MPV 11.4 H (6-9.5) fl Gran % 78.5 H (36.0-66.0) % Eos # (Auto) 0.12 (0-0.5) Absolute Lymphs (auto) 1.40 (1.0-4.6) Absolute Monos (auto) 0.62 (0.0-1.3) Lymphocytes % 13.9 L (24.0-44.0) % Monocytes % 6.2 (0.0-12.0) % Eosinophils % 1.2 (0.00-5.0) % Basophils % 0.2 (0.0-0.4) % Absolute Granulocytes 7.91 H (1.4-6.9) Basophils # 0.02 (0-0.4) Sodium (137-145) mmol/L Potassium (3.5-5.1) mmol/L Chloride (98-107) mmol/L Carbon Dioxide (22-30) mmol/L Anion Gap (5-15) MEQ/L BUN (9-20) mg/dL Creatinine (0.66-1.25) mg/dL Estimated GFR ML/MIN Glucose (74-106) mg/dL Calcium (8.4-10.2) mg/dL Total Bilirubin (0.2-1.3) mg/dL AST (17-59) U/L ALT (0-50) U/L Alkaline Phosphatase (38-126) U/L Serum Total Protein (6.3-8.2) g/dL Albumin (3.5-5.0) g/dL Urine Color YELLOW (YELLOW) Urine Appearance CLEAR (CLEAR) Urine pH 6.0 (5-6) Ur Specific [place] 1.023 (1.005-1.025) Urine Protein NEGATIVE (Negative) Urine Ketones NEGATIVE (NEGATIVE) Urine Blood NEGATIVE (0-5) Quan/ul Urine Nitrite NEGATIVE (NEGATIVE) Urine Bilirubin NEGATIVE (NEGATIVE) Urine Urobilinogen NEGATIVE (0-1) mg/dL Ur Leukocyte Esterase NEGATIVE (NEGATIVE) Urine WBC (Auto) NONE (0-5) /HPF Urine RBC (Auto) 0-2 (0-2) /HPF U Epithel Cells (Auto) NONE (FEW) /HPF Urine Bacteria (Auto) NONE (NEGATIVE) /HPF Urine Mucus (Auto) SLIGHT (NEGATIVE) /HPF Urine Culture Reflexed NO (NO) Urine Glucose NEGATIVE (NEGATIVE) mg/dL Monoscreen (Negative) Influenza Type A Ag (NEGATIVE) Influenza Type B Ag (NEGATIVE) RSV (PCR) (Negative) Group A Strep Antibody (NEGATIVE) - Progress Progress: improved Air Movement: good Blood Culture(s) Obtained: No Antibiotics given: No Counseled pt/family regarding: lab results, diagnosis, need for follow-up - Departure Departure Disposition: Home Clinical Impression: Viral illness, Headache Condition: Stable Critical Care Time: No Referrals: DOCTOR,NO FAMILY [Primary Care Provider] - Additional Instructions: drink plenty of fluids. tylenol and ibuprofen for fever and pain. follow up with primary doctor for further management Prescriptions: Ondansetron ODT 4 MG [Zofran Odt 4 mg] 4 mg PO Q6H PRN PRN #10 tab.rapdis PRN Reason: Vomiting
[2019-08-12] MEDS ORDERED: Hydromorphone 1 mg/ml Ampule IV ONE (15:39)
[2019-08-12 16:08] LABS: Absolute Neutrophil Ct (ANC) 7.91 (1.4-6.9); BASOPHIL % 0.2 % (0.0-0.4); Basophil (Absolute #) 0.02 (0-0.4); Eosinophil % 1.2 % (0.00-5.0); Eosinophil (Absolute #) 0.12 (0-0.5); Hematocrit 43.9 % (42-50); Hemoglobin 15.3 gm/dl (12.5-18.0); Lymphocytes % 13.9 % (24.0-44.0); Mean Cell Volume 91.6 fl (78-100); Mean Corpuscular Hemoglobin 31.9 pg (26-32); Mean Corpuscular Hgb Concent. 34.9 g/dl (32-36); Mean Platelet Volume 11.4 fl (6-9.5); Monocyte (Absolute #) 0.62 (0.0-1.3); Monocytes % 6.2 % (0.0-12.0); Neutrophil % 78.5 % (36.0-66.0); Platelet Count 179 K/mm3 (150-450); Red Blood Count 4.79 M/mm3 (4.1-5.6); Red Cell Distribution Width 12.7 % (11.5-14.0); White Blood Count 10.1 K/mm3 (4.0-10.5)
[2019-08-12] MEDS ORDERED: Zofran 4 MG/2 ML VIAL ONE (16:13)
[2019-08-12] MEDS ORDERED: Sodium Chloride 0.9% 1000 ML 1,000 ML ONE (16:13)
[2019-08-12] MEDS ORDERED: Hydromorphone 1 mg/ml Ampule ONE (16:13)
[2019-08-12 16:20] LABS: Appearance CLEAR (CLEAR); Bilirubin NEGATIVE (NEGATIVE); Blood NEGATIVE Ery/ul (0-5); Glucose NEGATIVE (NEGATIVE); Ketones NEGATIVE (NEGATIVE); Leukocyte Esterase NEGATIVE (NEGATIVE); Mucus SLIGHT /HPF (NEGATIVE); Nitrite NEGATIVE (NEGATIVE); Protein,Urine Dip NEGATIVE (Negative); RBC 0-2 /HPF (0-2); Specific Gravity 1.023 (1.005-1.025); Urobilinogen NEGATIVE mg/dL (0-1)
[2019-08-12 16:22] LABS: ALBUMIN 4.1 g/dL (3.5-5.0); ALKALINE PHOSPHATASE 67 U/L (38-126); ANION GAP 10.5 MEQ/L (5-15); BLOOD UREA NITROGEN 16 mg/dL (9-20); CHLORIDE 107 mmol/L (98-107); Calcium 9.7 mg/dL (8.4-10.2); Carbon Dioxide 26 mmol/L (22-30); Glucose 99 mg/dL (74-106); Potassium 3.9 mmol/L (3.5-5.1); SGOT/AST 38 U/L (17-59); SGPT/ALT 50 U/L (0-50); SODIUM 140 mmol/L (137-145)
[2019-08-12 16:40] VITALS: PULSE 52
[2019-08-12 16:46] LABS: Group A Strep NEGATIVE (NEGATIVE); INFLUENZA A NEGATIVE (NEGATIVE); INFLUENZA B NEGATIVE (NEGATIVE); RESPIRATORY SYNCTIAL VIRUS NEGATIVE (Negative)
[2019-08-12] MEDS ORDERED: TORAdol 30 mg Injection IV ONE (17:12)
[2019-08-12] MEDS ORDERED: TORAdol 30 mg Injection ONE (17:14)
[2019-08-12 17:29] VITALS: BP 129/72; O2SAT 99
== END 2019-08-12 17:29 | disposition home or self-care (01) ==
LOC: ED 15:01
DX: B34.9 Viral infection, unspecified (principal); R51 Headache
CPT/HCPCS: 36000; 36415; 80053; 81001; 85025; 86308; 87631; 87651; 96360; 96374; 96375; 99284; J1170; J1885; J2405

== ENCOUNTER 2020-03-28 21:20 | Emergency (ER) | payer MEDICAID ==
[2020-03-28] MEDS ORDERED: Sodium Chloride 0.9% 1000 ML 1,000 ML IV SCH (21:30)
[2020-03-28] MEDS ORDERED: Sodium Chloride 0.9% 1000 ML 1,000 ML ONE (21:49)
[2020-03-28 21:55] LABS: Absolute Neutrophil Ct (ANC) 3.29 (1.4-6.9); BASOPHIL % 0.5 % (0.0-0.4); Basophil (Absolute #) 0.03 (0-0.4); Eosinophil % 2.7 % (0.00-5.0); Eosinophil (Absolute #) 0.16 (0-0.5); Hematocrit 42.4 % (42-50); Hemoglobin 14.6 gm/dl (12.5-18.0); Lymphocyte (Absolute #) 1.87 (1.0-4.6); Lymphocytes % 31.9 % (24.0-44.0); Mean Cell Volume 93.8 fl (78-100); Mean Corpuscular Hemoglobin 32.3 pg (26-32); Mean Corpuscular Hgb Concent. 34.4 g/dl (32-36); Mean Platelet Volume 12.1 fl (7.5-11.0); Monocyte (Absolute #) 0.51 (0.0-1.3); Monocytes % 8.7 % (0.0-12.0); Neutrophil % 56.2 % (36.0-66.0); Platelet Count 177 K/mm3 (150-450); Red Blood Count 4.52 M/mm3 (4.1-5.6); Red Cell Distribution Width 13.3 % (11.5-14.0); White Blood Count 5.9 K/mm3 (4.0-10.5)
[2020-03-28 22:11] LABS: Appearance CLEAR (CLEAR); Bilirubin NEGATIVE (NEGATIVE); Blood NEGATIVE Ery/ul (0-5); Glucose NEGATIVE (NEGATIVE); Ketones NEGATIVE (NEGATIVE); Leukocyte Esterase NEGATIVE (NEGATIVE); Mucus SLIGHT /HPF (NEGATIVE); Nitrite NEGATIVE (NEGATIVE); Protein,Urine Dip NEGATIVE (Negative); Specific Gravity 1.024 (1.005-1.025); Urobilinogen 4 mg/dL (0-1)
[2020-03-28 22:16] LABS: INR 1.15 (0.8-3.0)
[2020-03-28 22:19] LABS: ALKALINE PHOSPHATASE 64 U/L (38-126); AMYLASE 107 U/L (30-110); ANION GAP 9.7 MEQ/L (5-15); BLOOD UREA NITROGEN 21 mg/dL (9-20); CHLORIDE 109 mmol/L (98-107); Calcium 9.3 mg/dL (8.4-10.2); Carbon Dioxide 23 mmol/L (22-30); Creatinine 1 1.04 mg/dL (0.66-1.25); Glucose 104 mg/dL (74-106); LIPASE 92 U/L (23-300); NT PRO BNP 110 pg/mL (0-450); Potassium 4.3 mmol/L (3.5-5.1); SGOT/AST 29 U/L (17-59); SGPT/ALT 33 U/L (0-50); SODIUM 137 mmol/L (137-145); Total Protein 7.5 g/dL (6.3-8.2)
[2020-03-28] MEDS ORDERED: DUONEB 0.5-3 MG/3 ml Neb IH ONE ×2 (22:30→22:34)
[2020-03-28] MEDS ORDERED: Hydromorphone 1 mg/ml Ampule IV ONE (22:47)
[2020-03-28] MEDS ORDERED: Hydromorphone 1 mg/ml Ampule ONE (22:49)
[2020-03-28 23:07] VITALS: O2SAT 98
[2020-03-28] MEDS ORDERED: solu-MEDROL 125 MG IV ONE (23:21)
--- NOTE | 2020-03-28 23:21 | ERPHSYRPT ---
- History of Present Illness Time Seen by Provider: 03/28/20 21:25 Patient Subjective Stated Complaint: "I've had trouble breathing the last four days but today I woke up and couldn't breath at all." Triage Nursing Assessment: 49 year old male presented alert et oriented reported 4 days of dyspnea at rest and with exertion. pt reported associated retrosternal chest pain described as sharp and stabbing non-radiating. Pt denied any respiratory/cardiac history. Pt denied any recent injury/illnesses. Denied nausea/vomiting/diarrhea. Pupils 3mm brisk reaction. Oral mucosa pink moist. Neck supple non-tender without noted JVD. Symmetrical chest expansion. Heart tones regular/clear. Lungs clear with adequate airflow. Radial pulses +2 bilateral. Abdomen soft non-distended without palpable organomegaly. No noted dependent edema. Physician History: Patient is a 49-year-old male who is smoked 2 to 2-1/2 packs/day since the age of 16 who presents with a complaint of shortness of breath over the past 4 days. It started with some congestion shortness of breath especially with exertion he is also had some chest discomfort he had no nausea no vomiting no diaphoresis. His risk factors are primarily smoking. He also has lost his appetite over the last few days. Timing/Duration: day(s) (4) Activities at Onset: none Severity of Dyspnea-Max: moderate Severity of Dyspnea-Current: moderate Possible Cause: occasional episodes Modifying Factors: Improves With: nothing Associated Symptoms: denies symptoms Allergies/Adverse Reactions: Penicillins Allergy (Verified 03/28/20 21:32) Hx Tetanus, Diphtheria Vaccination/Date Given: No Hx Influenza Vaccination/Date Given: Yes Hx Pneumococcal Vaccination/Date Given: No Travel Risk - International Travel Have you traveled outside of the country in past 3 weeks: No - Coronavirus Screening Are you exhibiting any of the following symptoms?: Yes Symptoms: Cough: New Onset, Shortness of Breath Close contact with a COVID-19 positive Pt in past 14-21 Days: No - Review of Systems Constitutional: No Fever, No Chills Eyes: No Symptoms Ears, Nose, & Throat: No Symptoms Respiratory: Dyspnea, Dyspnea on Exertion (BENNETT), No Cough Cardiac: No Chest Pain, No Edema, No Syncope Abdominal/Gastrointestinal: No Abdominal Pain, No Nausea, No Vomiting, No Diarrhea Genitourinary Symptoms: No Dysuria Musculoskeletal: No Back Pain, No Neck Pain Skin: No Rash Neurological: No Dizziness, No Focal Weakness, No Sensory Changes Psychological: No Symptoms Endocrine: No Symptoms All Other Systems: Reviewed and Negative - Past Medical History Pertinent Past Medical History: No Neurological History: Other ENT History: No Pertinent History Cardiac History: No Pertinent History Respiratory History: No Pertinent History Endocrine Medical History: No Pertinent History Musculoskeletal History: No Pertinent History GI Medical History: No Pertinent History History: No Pertinent History Psycho-Social History: No Pertinent History Male Reproductive Disorders: No Pertinent History - Past Surgical History Past Surgical History: Yes Neuro Surgical History: No Pertinent History Cardiac: No Pertinent History Respiratory: No Pertinent History Gastrointestinal: Hernia Repair Genitourinary: No Pertinent History Musculoskeletal: Orthopedic Surgery Male Surgical History: No Pertinent History - Social History Smoking Status: Current every day smoker How long have you smoked: 25 YEARS Exposure to second hand smoke: No Drug Use: marijuana Patient Lives Alone: No - Nursing Vital Signs Nursing Vital Signs: Initial Vital Signs Temperature 97.8 F 03/28/20 21:20 Pulse Rate 62 03/28/20 21:20 Respiratory Rate 20 03/28/20 21:20 Blood Pressure 133/89 03/28/20 21:20 O2 Sat by Pulse Oximetry 98 03/28/20 21:20 Pain Scale Pain Intensity 6 - Physical Exam General Appearance: mild distress, alert Eye Exam: PERRL/EOMI Neck Exam: normal inspection, supple Respiratory Exam: respiratory distress (Very mild), diminished breath sounds Cardiovascular/Chest Exam: normal heart sounds, regular rate/rhythm Abdominal/Gastrointestinal Exam: soft, No tenderness, No distention, No mass Extremity Exam: non-tender, normal range of motion, normal inspection, no calf tenderness, no pedal edema Peripheral Pulses Exam: carotid (R): 2+, carotid (L): 2+ Neurologic Exam: alert, oriented x 3, 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, 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, sensation nml, No motor deficits Skin Exam: normal color, warm, No dry SpO2 Interpretation: normal SpO2: 98 O2 Delivery: Room Air - Course Nursing assessment & vital signs reviewed: Yes EKG Interpreted by Me: RATE (59), NORMAL AXIS, NORMAL INTERVALS, NORMAL QRS, Non-specific ST Changes - Radiology Exams Chest X-ray Interpretation: Interpreted by me, Other (There is hyper aeration of the lungs consistent with COPD no acute processes) Ordered Tests: Active Orders 24 hr Category Date Time Status Press Operator Printing STAT Care 03/28/20 21:29 Active EKG-ER Only STAT Care 03/28/20 21:28 Active IV Insertion STAT Care 03/28/20 21:28 Active CHEST 1 VIEW (PORTABLE) Stat Exams 03/28/20 21:29 Taken AMYLASE Stat Lab 03/28/20 21:30 Completed CBC W DIFF Stat Lab 03/28/20 21:30 Completed CMP Stat Lab 03/28/20 21:30 Completed D-DIMER QUANTITATIVE Stat Lab 03/28/20 21:30 Completed LIPASE Stat Lab 03/28/20 21:30 Completed Lactic Acid Stat Lab 03/28/20 21:53 Completed NT PRO BNP Stat Lab 03/28/20 21:30 Completed PROTIME WITH INR Stat Lab 03/28/20 21:30 Completed TROPONIN Q3H Lab 03/28/20 21:30 Completed TROPONIN Q3H Lab 03/29/20 00:30 Ordered TROPONIN Q3H Lab 03/29/20 03:30 Ordered TROPONIN Q3H Lab 03/29/20 06:30 Ordered TROPONIN Q3H Lab 03/29/20 09:30 Ordered UA W/RFX UR CULTURE Stat Lab 03/28/20 21:30 Completed Respiratory Therapy Assessment DAILY RT 03/28/20 22:40 Active Medication Summary Generic Name Dose Route Start Last Admin Trade Name Freq PRN Reason Stop Dose Admin Sodium Chloride 1,000 mls @ 100 mls/hr 03/28/20 21:30 03/28/20 21:51 Sodium Chloride 0.9% 1000 Ml IV 04/27/20 21:29 100 mls/hr .Q10H RAND Administration Ceftriaxone Sodium/Dextrose 1 g in 50 mls @ 100 mls/hr 03/28/20 23:22 Rocephin 1 Gm-D5w 50 Ml Bag IV 03/28/20 23:51 STAT STA Methylprednisolone Sodium Succinate 125 mg 03/28/20 23:21 Solu-Medrol 125 Mg IV 03/28/20 23:22 STAT ONE Discontinued Medications Generic Name Dose Route Start Last Admin Trade Name Freq PRN Reason Stop Dose Admin Albuterol/Ipratropium 3 ml 03/28/20 22:30 03/28/20 22:35 Duoneb 0.5-3 Mg/3 Ml Neb IH 03/28/20 22:31 3 ml STAT ONE Administration Albuterol/Ipratropium Confirm 03/28/20 22:34 Duoneb 0.5-3 Mg/3 Ml Neb Administered 03/28/20 22:35 Dose 3 ml IH .STK-MED ONE Hydromorphone HCl 1 mg 03/28/20 22:47 03/28/20 22:50 Hydromorphone 1 Mg/Ml Ampule IV 03/28/20 22:48 1 mg STAT ONE Administration Hydromorphone HCl Confirm 03/28/20 22:49 Hydromorphone 1 Mg/Ml Ampule Administered 03/28/20 22:50 Dose 1 mg .ROUTE .STK-MED ONE Lab/Rad Data: Laboratory Result Diagrams 03/28/20 21:30 03/28/20 21:30 Laboratory Results 03/28/20 03/28/20 03/28/20 Range/Units 21:53 21:30 21:30 WBC (4.0-10.5) K/mm3 RBC (4.1-5.6) M/mm3 Hgb (12.5-18.0) gm/dl Hct (42-50) % MCV (78-100) fl MCH (26-32) pg MCHC (32-36) g/dl RDW (11.5-14.0) % Plt Count (150-450) K/mm3 MPV (7.5-11.0) fl Gran % (36.0-66.0) % Eos # (Auto) (0-0.5) Absolute Lymphs (auto) (1.0-4.6) Absolute Monos (auto) (0.0-1.3) Lymphocytes % (24.0-44.0) % Monocytes % (0.0-12.0) % Eosinophils % (0.00-5.0) % Basophils % (0.0-0.4) % Absolute Granulocytes (1.4-6.9) Basophils # (0-0.4) PT (8.83-12.87) SECONDS INR (0.8-3.0) D-Dimer (215-500) ng/mL Sodium (137-145) mmol/L Potassium (3.5-5.1) mmol/L Chloride (98-107) mmol/L Carbon Dioxide (22-30) mmol/L Anion Gap (5-15) MEQ/L BUN (9-20) mg/dL Creatinine (0.66-1.25) mg/dL Estimated GFR ML/MIN Glucose (74-106) mg/dL Lactic Acid 1.6 (0.4-2.0) Calcium (8.4-10.2) mg/dL Total Bilirubin (0.2-1.3) mg/dL AST (17-59) U/L ALT (0-50) U/L Alkaline Phosphatase (38-126) U/L Troponin I < 0.012 (0.000-0.034) ng/mL NT-Pro-B Natriuret Pep (0-450) pg/mL Serum Total Protein (6.3-8.2) g/dL Albumin (3.5-5.0) g/dL Amylase (30-110) U/L Lipase (23-300) U/L Urine Color YELLOW (YELLOW) Urine Appearance CLEAR (CLEAR) Urine pH 6.0 (5-6) Ur Specific [place] 1.024 (1.005-1.025) Urine Protein NEGATIVE (Negative) Urine Ketones NEGATIVE (NEGATIVE) Urine Blood NEGATIVE (0-5) Quan/ul Urine Nitrite NEGATIVE (NEGATIVE) Urine Bilirubin NEGATIVE (NEGATIVE) Urine Urobilinogen 4 (0-1) mg/dL Ur Leukocyte Esterase NEGATIVE (NEGATIVE) Urine WBC (Auto) NONE (0-5) /HPF Urine RBC (Auto) NONE (0-2) /HPF U Epithel Cells (Auto) NONE (FEW) /HPF Urine Bacteria (Auto) NONE (NEGATIVE) /HPF Urine Mucus (Auto) SLIGHT (NEGATIVE) /HPF Urine Culture Reflexed NO (NO) Urine Glucose NEGATIVE (NEGATIVE) mg/dL 03/28/20 03/28/20 03/28/20 Range/Units 21:30 21:30 21:30 WBC 5.9 (4.0-10.5) K/mm3 RBC 4.52 (4.1-5.6) M/mm3 Hgb 14.6 (12.5-18.0) gm/dl Hct 42.4 (42-50) % MCV 93.8 (78-100) fl MCH 32.3 H (26-32) pg MCHC 34.4 (32-36) g/dl RDW 13.3 (11.5-14.0) % Plt Count 177 (150-450) K/mm3 MPV 12.1 H (7.5-11.0) fl Gran % 56.2 (36.0-66.0) % Eos # (Auto) 0.16 (0-0.5) Absolute Lymphs (auto) 1.87 (1.0-4.6) Absolute Monos (auto) 0.51 (0.0-1.3) Lymphocytes % 31.9 (24.0-44.0) % Monocytes % 8.7 (0.0-12.0) % Eosinophils % 2.7 (0.00-5.0) % Basophils % 0.5 (0.0-0.4) % Absolute Granulocytes 3.29 (1.4-6.9) Basophils # 0.03 (0-0.4) PT 13.0 H (8.83-12.87) SECONDS INR 1.15 (0.8-3.0) D-Dimer 424 (215-500) ng/mL Sodium 137 (137-145) mmol/L Potassium 4.3 (3.5-5.1) mmol/L Chloride 109 H (98-107) mmol/L Carbon Dioxide 23 (22-30) mmol/L Anion Gap 9.7 (5-15) MEQ/L BUN 21 H (9-20) mg/dL Creatinine 1.04 (0.66-1.25) mg/dL Estimated GFR > 60.0 ML/MIN Glucose 104 (74-106) mg/dL Lactic Acid (0.4-2.0) Calcium 9.3 (8.4-10.2) mg/dL Total Bilirubin 0.70 (0.2-1.3) mg/dL AST 29 (17-59) U/L ALT 33 (0-50) U/L Alkaline Phosphatase 64 (38-126) U/L Troponin I (0.000-0.034) ng/mL NT-Pro-B Natriuret Pep 110 (0-450) pg/mL Serum Total Protein 7.5 (6.3-8.2) g/dL Albumin 4.0 (3.5-5.0) g/dL Amylase 107 (30-110) U/L Lipase 92 (23-300) U/L Urine Color (YELLOW) Urine Appearance (CLEAR) Urine pH (5-6) Ur Specific [place] (1.005-1.025) Urine Protein (Negative) Urine Ketones (NEGATIVE) Urine Blood (0-5) Quan/ul Urine Nitrite (NEGATIVE) Urine Bilirubin (NEGATIVE) Urine Urobilinogen (0-1) mg/dL Ur Leukocyte Esterase (NEGATIVE) Urine WBC (Auto) (0-5) /HPF Urine RBC (Auto) (0-2) /HPF U Epithel Cells (Auto) (FEW) /HPF Urine Bacteria (Auto) (NEGATIVE) /HPF Urine Mucus (Auto) (NEGATIVE) /HPF Urine Culture Reflexed (NO) Urine Glucose (NEGATIVE) mg/dL - Progress Progress: improved Air Movement: good Blood Culture(s) Obtained: No Antibiotics given: Yes - Departure Departure Disposition: Home Clinical Impression: COPD with acute exacerbation Condition: Stable Critical Care Time: No Referrals: DOCTOR,NO FAMILY [Primary Care Provider] - Instructions: Chronic Obstructive Pulmonary Disease, Exacerbation of COPD (DC) Prescriptions: Prednisone 10 mg [Deltasone 10 mg] 20 mg PO BID #20 tablet Nicotine 21 mg [Nicoderm CQ 21 MG] 1 each TD DAILY 30 Days #30 patch Albuterol Sulfate [Proair Hfa] 8.5 gm IH Q4H 30 Days #1 [email or web address] Doxycycline Hyclate 100 mg [Vibramycin 100 MG] 100 mg PO BID #14 tab
[2020-03-28] MEDS ORDERED: solu-MEDROL 125 MG ONE (23:22)
[2020-03-28] MEDS ORDERED: ROCEPHIN 1 Gm-D5w 50 ml Bag** 1 G/50 ML IVPB IV STA (23:22)
[2020-03-28] MEDS ORDERED: KEFLEX 500 MG ONE (23:22)
[2020-03-28] MEDS ORDERED: Vibramycin 100 MG PO ONE (23:25)
[2020-03-28] MEDS ORDERED: Vibramycin 100 MG ONE (23:26)
[2020-03-28 23:47] VITALS: BP 125/81; PULSE 58
--- NOTE | 2020-03-29 09:10 | XRAY ---
Indication: Chest pain and short of breath. Comparison: February 01, 2017. Portable chest remains hyperinflated and clear again with incidental tiny calcified granulomas. Heart and mediastinal structures within normal limits for AP portable technique. Bony thorax intact. Impression: Stable nonacute hyperinflated chest again with old granulomatous disease.
== END 2020-03-28 23:47 | disposition home or self-care (01) ==
LOC: ED 21:20
DX: J44.1 Chronic obstructive pulmonary disease with (acute) exacerbation (principal)
CPT/HCPCS: 36000; 36415; 71045; 80053; 81001; 82150; 83605; 83690; 83880; 84484; 85025; 85379; 85610; 93005; 93041; 94640; 96374; 96375; 99284; J1170; J2930; A9270-GY

== ENCOUNTER 2020-04-11 21:02 | Emergency (ER) | payer MEDICAID ==
[2020-04-11 21:55] LABS: BASOPHIL % 0.1 % (0.0-0.4); Basophil (Absolute #) 0.01 (0-0.4); Eosinophil % 1.7 % (0.00-5.0); Eosinophil (Absolute #) 0.16 (0-0.5); Hematocrit 45.6 % (42-50); Hemoglobin 15.3 gm/dl (12.5-18.0); Lymphocyte (Absolute #) 2.04 (1.0-4.6); Lymphocytes % 22.1 % (24.0-44.0); Mean Cell Volume 94.4 fl (78-100); Mean Corpuscular Hemoglobin 31.7 pg (26-32); Mean Corpuscular Hgb Concent. 33.6 g/dl (32-36); Mean Platelet Volume 11.9 fl (7.5-11.0); Monocyte (Absolute #) 0.74 (0.0-1.3); Neutrophil % 68.1 % (36.0-66.0); Platelet Count 191 K/mm3 (150-450); Red Blood Count 4.83 M/mm3 (4.1-5.6); Red Cell Distribution Width 13.9 % (11.5-14.0); White Blood Count 9.3 K/mm3 (4.0-10.5)
[2020-04-11] MEDS ORDERED: Zofran 4 MG/2 ML VIAL ONE (21:56)
[2020-04-11] MEDS ORDERED: ROCEPHIN 1 Gm-D5w 50 ml Bag** 0 G/0 ML IVPB IV ONE (21:57)
[2020-04-11] MEDS ORDERED: Zithromax 500 MG/ 250 ML NaCl Premix 500 MG/250 ML IVPB IV ONE (21:57)
[2020-04-11] MEDS ORDERED: MORPHINE SULFATE 2 MG INJ ONE (21:57)
[2020-04-11] MEDS ORDERED: TYLENOL EXTRA STRENGTH 500 MG ONE (21:57)
[2020-04-11] MEDS: TYLENOL EXTRA STRENGTH 500 MG PO STA (21:58)
--- NOTE | 2020-04-11 21:59 | ERPHSYRPT ---
- History of Present Illness Time Seen by Provider: 04/11/20 21:44 Source: patient Exam Limitations: no limitations Patient Subjective Stated Complaint: pt states that he had a headache that began at midnight last night, pt states that he then began to vomit, pt states that he has vomited 5 times, pt states that he has muscle pain in the both calves, pt states that he tried to drink water but is unable to keep anything down, pt states that he broke out into a sweat last night, pt states that he has no desire to eat Triage Nursing Assessment: pt ambulated into the er. pt is axo x3, c/o headache, n/v, active bowel sounds in all quads, pupils 3mm and PERRL, equal strengths, clear lung sounds anterior and posterior, c/o BLE pain, vitals wnl Physician History: pt states that he had a headache that began at midnight last night, pt states that he then began to vomit, pt states that he has vomited 5 times, pt states that he has muscle pain in the both calves, pt states that he tried to drink water but is unable to keep anything down, pt states that he broke out into a sweat last night, pt states that he has no desire to eat Timing/Duration: yesterday Severity: moderate Modifying Factors: Improves With: nothing Associated Symptoms: nausea, vomiting, abdominal pain, diaphoresis, cough, chills, fever, headaches, loss of appetite, malaise, weakness Allergies/Adverse Reactions: Penicillins Allergy (Verified 04/11/20 21:56) Home Medications: buPROPion HCL [Bupropion HCl] 100 mg PO DAILY 04/11/20 [History] Hx Tetanus, Diphtheria Vaccination/Date Given: No Hx Influenza Vaccination/Date Given: Yes Hx Pneumococcal Vaccination/Date Given: No Travel Risk - International Travel Have you traveled outside of the country in past 3 weeks: No - Coronavirus Screening Are you exhibiting any of the following symptoms?: Yes Symptoms: Fever, Vomiting/Diarrhea, Headaches/Body Aches/Fatigue Close contact with a COVID-19 positive Pt in past 14-21 Days: Yes - Review of Systems Constitutional: Fever, Chills, Fatigue, Malaise, Night Sweats, Weakness Eyes: No Symptoms Ears, Nose, & Throat: No Symptoms Respiratory: Cough, No Dyspnea Cardiac: No Chest Pain, No Edema, No Syncope Abdominal/Gastrointestinal: Abdominal Pain, Nausea, Vomiting, Diarrhea Genitourinary Symptoms: No Dysuria Musculoskeletal: No Back Pain, No Neck Pain Skin: No Rash Neurological: Headache, No Dizziness, No Focal Weakness, No Sensory Changes Psychological: No Symptoms Endocrine: No Symptoms All Other Systems: Reviewed and Negative - Past Medical History Pertinent Past Medical History: Yes Neurological History: Other ENT History: No Pertinent History Cardiac History: No Pertinent History Respiratory History: COPD Endocrine Medical History: No Pertinent History Musculoskeletal History: No Pertinent History GI Medical History: No Pertinent History History: No Pertinent History Psycho-Social History: No Pertinent History Male Reproductive Disorders: No Pertinent History - Past Surgical History Past Surgical History: Yes Neuro Surgical History: No Pertinent History Cardiac: No Pertinent History Respiratory: No Pertinent History Gastrointestinal: Hernia Repair Genitourinary: No Pertinent History Musculoskeletal: Orthopedic Surgery Male Surgical History: No Pertinent History - Social History Smoking Status: Former smoker How long have you smoked: 25 YEARS Exposure to second hand smoke: No Drug Use: marijuana Patient Lives Alone: No - Nursing Vital Signs Nursing Vital Signs: Initial Vital Signs Temperature 99.1 F 04/11/20 21:42 Pulse Rate 52 L 04/11/20 21:42 Respiratory Rate 17 04/11/20 21:42 Blood Pressure 119/60 04/11/20 21:42 O2 Sat by Pulse Oximetry 99 04/11/20 21:42 Pain Scale Pain Intensity 6 - Physical Exam General Appearance: no apparent distress, alert Eye Exam: PERRL/EOMI, eyes nml inspection Ears, Nose, Throat Exam: normal ENT inspection, TMs normal, pharynx normal, moist mucous membranes Neck Exam: normal inspection, non-tender, supple, full range of motion Respiratory Exam: normal breath sounds, lungs clear, No respiratory distress Cardiovascular Exam: regular rate/rhythm, normal heart sounds, normal peripheral pulses Gastrointestinal/Abdomen Exam: soft, normal bowel sounds, No tenderness, No mass Back Exam: normal inspection, normal range of motion, No CVA tenderness, No vertebral tenderness Extremity Exam: normal inspection, normal range of motion, pelvis stable Neurologic Exam: alert, oriented x 3, cooperative, normal mood/affect, nml cerebellar function, nml station & gait, sensation nml, No motor deficits Skin Exam: normal color, warm, dry, No rash Lymphatic Exam: No adenopathy SpO2: 99 - Radiology Exams Chest X-ray Interpretation: Interpreted by me, No Pneumonia Ordered Tests: Active Orders 24 hr Category Date Time Status EKG-ER Only STAT Care 04/11/20 21:36 Active IV Insertion STAT Care 04/11/20 21:36 Active Isolation, Initiate & Maintain STAT Care 04/11/20 21:36 Active CHEST 1 VIEW (PORTABLE) Stat Exams 04/11/20 21:36 Taken BLOOD CULTURE Stat Lab 04/11/20 21:45 Received CBC W DIFF Stat Lab 04/11/20 21:45 Completed CMP Stat Lab 04/11/20 21:45 Completed D-DIMER QUANTITATIVE Stat Lab 04/11/20 21:45 Completed Ferritin Stat Lab 04/11/20 21:45 Completed LDH-LACTATE DEHYDROGENASE Stat Lab 04/11/20 21:45 Completed Lactic Acid Stat Lab 04/11/20 21:36 Completed MAGNESIUM Stat Lab 04/11/20 21:45 Completed PROTIME WITH INR Stat Lab 04/11/20 21:45 Completed PTT Stat Lab 04/11/20 21:45 Completed TROPONIN Stat Lab 04/11/20 21:45 Completed UA W/RFX UR CULTURE Stat Lab 04/11/20 22:30 Completed Medication Summary Discontinued Medications Generic Name Dose Route Start Last Admin Trade Name Freq PRN Reason Stop Dose Admin Acetaminophen 500 mg 04/11/20 21:36 04/11/20 21:58 Tylenol Extra Strength 500 Mg PO 04/11/20 21:37 500 mg STAT STA Administration Acetaminophen Confirm 04/11/20 21:57 Tylenol Extra Strength 500 Mg Administered 04/11/20 21:58 Dose 500 mg .ROUTE .STK-MED ONE Ceftriaxone Sodium/Dextrose 1 g in 50 mls @ 100 mls/hr 04/11/20 21:36 04/11/20 22:18 Rocephin 1 Gm-D5w 50 Ml Bag IV 04/11/20 22:05 Not Given STAT ONE Azithromycin 500 mg in 250 mls @ 250 mls/hr 04/11/20 21:36 04/11/20 22:03 Zithromax 500 Mg/ 250 Ml Nacl Premix IV 04/11/20 22:35 250 mls/hr STAT ONE Administration Azithromycin Confirm 04/11/20 21:57 Zithromax 500 Mg/ 250 Ml Nacl Premix Administered 04/11/20 21:58 Dose 500 mg in 250 mls @ ud IV .STK-MED ONE Ceftriaxone Sodium/Dextrose Confirm 04/11/20 21:57 Rocephin 1 Gm-D5w 50 Ml Bag Administered 04/11/20 21:58 Dose 1 g in 50 mls @ ud IV .STK-MED ONE Morphine Sulfate 2 mg 04/11/20 21:44 04/11/20 22:01 Morphine Sulfate 2 Mg Inj IV 04/11/20 21:45 2 mg STAT ONE Administration Morphine Sulfate Confirm 04/11/20 21:57 Morphine Sulfate 2 Mg Inj Administered 04/11/20 21:58 Dose 2 mg .ROUTE .STK-MED ONE Ondansetron HCl 4 mg 04/11/20 21:44 04/11/20 22:01 Zofran 4 Mg/2 Ml Vial IV 04/11/20 21:45 4 mg STAT ONE Administration Ondansetron HCl Confirm 04/11/20 21:56 Zofran 4 Mg/2 Ml Vial Administered 04/11/20 21:57 Dose 4 mg .ROUTE .STK-MED ONE Lab/Rad Data: Laboratory Result Diagrams 04/11/20 21:45 04/11/20 21:45 Laboratory Results 04/11/20 04/11/20 04/11/20 Range/Units 23:10 22:30 21:45 WBC (4.0-10.5) K/mm3 RBC (4.1-5.6) M/mm3 Hgb (12.5-18.0) gm/dl Hct (42-50) % MCV (78-100) fl MCH (26-32) pg MCHC (32-36) g/dl RDW (11.5-14.0) % Plt Count (150-450) K/mm3 MPV (7.5-11.0) fl Gran % (36.0-66.0) % Eos # (Auto) (0-0.5) Absolute Lymphs (auto) (1.0-4.6) Absolute Monos (auto) (0.0-1.3) Lymphocytes % (24.0-44.0) % Monocytes % (0.0-12.0) % Eosinophils % (0.00-5.0) % Basophils % (0.0-0.4) % Absolute Granulocytes (1.4-6.9) Basophils # (0-0.4) PT (8.83-12.87) SECONDS INR (0.8-3.0) APTT (24.1-36.1) SECONDS D-Dimer (215-500) ng/mL Sodium (137-145) mmol/L Potassium (3.5-5.1) mmol/L Chloride (98-107) mmol/L Carbon Dioxide (22-30) mmol/L Anion Gap (5-15) MEQ/L BUN (9-20) mg/dL Creatinine (0.66-1.25) mg/dL Estimated GFR ML/MIN Glucose (74-106) mg/dL Lactic Acid (0.4-2.0) Calcium (8.4-10.2) mg/dL Magnesium (1.6-2.3) mg/dL Ferritin 193 (17.9-464) ng/mL Total Bilirubin (0.2-1.3) mg/dL AST (17-59) U/L ALT (0-50) U/L Alkaline Phosphatase (38-126) U/L Lactate Dehydrogenase (120-246) U/L Troponin I (0.000-0.034) ng/mL Serum Total Protein (6.3-8.2) g/dL Albumin (3.5-5.0) g/dL Urine Color YELLOW (YELLOW) Urine Appearance CLEAR (CLEAR) Urine pH 6.0 (5-6) Ur Specific [place] 1.026 (1.005-1.025) Urine Protein NEGATIVE (Negative) Urine Ketones NEGATIVE (NEGATIVE) Urine Blood NEGATIVE (0-5) Quan/ul Urine Nitrite NEGATIVE (NEGATIVE) Urine Bilirubin NEGATIVE (NEGATIVE) Urine Urobilinogen 4 (0-1) mg/dL Ur Leukocyte Esterase NEGATIVE (NEGATIVE) Urine WBC (Auto) NONE (0-5) /HPF Urine RBC (Auto) NONE (0-2) /HPF U Epithel Cells (Auto) NONE (FEW) /HPF Urine Bacteria (Auto) NONE (NEGATIVE) /HPF Urine Mucus (Auto) SLIGHT (NEGATIVE) /HPF Urine Culture Reflexed NO (NO) Urine Glucose NEGATIVE (NEGATIVE) mg/dL Influenza Type A Ag NEGATIVE (NEGATIVE) Influenza Type B Ag NEGATIVE (NEGATIVE) RSV (PCR) NEGATIVE (Negative) 04/11/20 04/11/20 04/11/20 Range/Units 21:45 21:45 21:45 WBC 9.3 (4.0-10.5) K/mm3 RBC 4.83 (4.1-5.6) M/mm3 Hgb 15.3 (12.5-18.0) gm/dl Hct 45.6 (42-50) % MCV 94.4 (78-100) fl MCH 31.7 (26-32) pg MCHC 33.6 (32-36) g/dl RDW 13.9 (11.5-14.0) % Plt Count 191 (150-450) K/mm3 MPV 11.9 H (7.5-11.0) fl Gran % 68.1 H (36.0-66.0) % Eos # (Auto) 0.16 (0-0.5) Absolute Lymphs (auto) 2.04 (1.0-4.6) Absolute Monos (auto) 0.74 (0.0-1.3) Lymphocytes % 22.1 L (24.0-44.0) % Monocytes % 8.0 (0.0-12.0) % Eosinophils % 1.7 (0.00-5.0) % Basophils % 0.1 (0.0-0.4) % Absolute Granulocytes 6.30 (1.4-6.9) Basophils # 0.01 (0-0.4) PT 12.5 (8.83-12.87) SECONDS INR 1.11 (0.8-3.0) APTT 27.8 (24.1-36.1) SECONDS D-Dimer 485 (215-500) ng/mL Sodium 136 L (137-145) mmol/L Potassium 4.1 (3.5-5.1) mmol/L Chloride 104 (98-107) mmol/L Carbon Dioxide 26 (22-30) mmol/L Anion Gap 10.4 (5-15) MEQ/L BUN 23 H (9-20) mg/dL Creatinine 0.87 (0.66-1.25) mg/dL Estimated GFR > 60.0 ML/MIN Glucose 97 (74-106) mg/dL Lactic Acid (0.4-2.0) Calcium 9.3 (8.4-10.2) mg/dL Magnesium 2.3 (1.6-2.3) mg/dL Ferritin (17.9-464) ng/mL Total Bilirubin 0.60 (0.2-1.3) mg/dL AST 32 (17-59) U/L ALT 27 (0-50) U/L Alkaline Phosphatase 57 (38-126) U/L Lactate Dehydrogenase 150 (120-246) U/L Troponin I < 0.012 (0.000-0.034) ng/mL Serum Total Protein 7.5 (6.3-8.2) g/dL Albumin 4.1 (3.5-5.0) g/dL Urine Color (YELLOW) Urine Appearance (CLEAR) Urine pH (5-6) Ur Specific [place] (1.005-1.025) Urine Protein (Negative) Urine Ketones (NEGATIVE) Urine Blood (0-5) Qaun/ul Urine Nitrite (NEGATIVE) Urine Bilirubin (NEGATIVE) Urine Urobilinogen (0-1) mg/dL Ur Leukocyte Esterase (NEGATIVE) Urine WBC (Auto) (0-5) /HPF Urine RBC (Auto) (0-2) /HPF U Epithel Cells (Auto) (FEW) /HPF Urine Bacteria (Auto) (NEGATIVE) /HPF Urine Mucus (Auto) (NEGATIVE) /HPF Urine Culture Reflexed (NO) Urine Glucose (NEGATIVE) mg/dL Influenza Type A Ag (NEGATIVE) Influenza Type B Ag (NEGATIVE) RSV (PCR) (Negative) 04/11/20 Range/Units 21:36 WBC (4.0-10.5) K/mm3 RBC (4.1-5.6) M/mm3 Hgb (12.5-18.0) gm/dl Hct (42-50) % MCV (78-100) fl MCH (26-32) pg MCHC (32-36) g/dl RDW (11.5-14.0) % Plt Count (150-450) K/mm3 MPV (7.5-11.0) fl Gran % (36.0-66.0) % Eos # (Auto) (0-0.5) Absolute Lymphs (auto) (1.0-4.6) Absolute Monos (auto) (0.0-1.3) Lymphocytes % (24.0-44.0) % Monocytes % (0.0-12.0) % Eosinophils % (0.00-5.0) % Basophils % (0.0-0.4) % Absolute Granulocytes (1.4-6.9) Basophils # (0-0.4) PT (8.83-12.87) SECONDS INR (0.8-3.0) APTT (24.1-36.1) SECONDS D-Dimer (215-500) ng/mL Sodium (137-145) mmol/L Potassium (3.5-5.1) mmol/L Chloride (98-107) mmol/L Carbon Dioxide (22-30) mmol/L Anion Gap (5-15) MEQ/L BUN (9-20) mg/dL Creatinine (0.66-1.25) mg/dL Estimated GFR ML/MIN Glucose (74-106) mg/dL Lactic Acid 1.1 (0.4-2.0) Calcium (8.4-10.2) mg/dL Magnesium (1.6-2.3) mg/dL Ferritin (17.9-464) ng/mL Total Bilirubin (0.2-1.3) mg/dL AST (17-59) U/L ALT (0-50) U/L Alkaline Phosphatase (38-126) U/L Lactate Dehydrogenase (120-246) U/L Troponin I (0.000-0.034) ng/mL Serum Total Protein (6.3-8.2) g/dL Albumin (3.5-5.0) g/dL Urine Color (YELLOW) Urine Appearance (CLEAR) Urine pH (5-6) Ur Specific [place] (1.005-1.025) Urine Protein (Negative) Urine Ketones (NEGATIVE) Urine Blood (0-5) Quan/ul Urine Nitrite (NEGATIVE) Urine Bilirubin (NEGATIVE) Urine Urobilinogen (0-1) mg/dL Ur Leukocyte Esterase (NEGATIVE) Urine WBC (Auto) (0-5) /HPF Urine RBC (Auto) (0-2) /HPF U Epithel Cells (Auto) (FEW) /HPF Urine Bacteria (Auto) (NEGATIVE) /HPF Urine Mucus (Auto) (NEGATIVE) /HPF Urine Culture Reflexed (NO) Urine Glucose (NEGATIVE) mg/dL Influenza Type A Ag (NEGATIVE) Influenza Type B Ag (NEGATIVE) RSV (PCR) (Negative) - Progress Progress: improved Progress Note: Anderson feels better. Only has a low-grade fever. Patient is nontoxic. Work-up is negative. We will send a COVID swab to the [facility]. No acute life or limb threatening condition on discharge. 04/11/20 23:50 Counseled pt/family regarding: lab results, diagnosis, need for follow-up, rad results - Departure Departure Disposition: Home Clinical Impression: Headache Qualifiers: Headache type: unspecified Headache chronicity pattern: acute headache Intractability: not intractable Qualified Code(s): R51 - Headache Upper respiratory infection Qualifiers: URI type: unspecified URI Qualified Code(s): J06.9 - Acute upper respiratory infection, unspecified Condition: Good Critical Care Time: No Referrals: DOCTOR,NO FAMILY [Primary Care Provider] - Follow Up with PCP/3 days Instructions: Headache, Adult (DC) Forms: Work/School Release Form Prescriptions: Azithromycin 250 mg [Zithromax 250 MG TABLET] 250 mg PO ZPACK #6 tablet
[2020-04-11] MEDS: Zofran 4 MG/2 ML VIAL IV ONE (22:01)
[2020-04-11] MEDS: MORPHINE SULFATE 2 MG INJ IV ONE (22:01)
[2020-04-11] MEDS: Zithromax 500 MG/ 250 ML NaCl Premix 500 MG/250 ML IVPB IV ONE (22:03)
[2020-04-11 22:14] LABS: INR 1.11 (0.8-3.0); PROTIME 12.5 SECONDS (8.83-12.87)
[2020-04-11 22:16] LABS: PTT 27.8 SECONDS (24.1-36.1)
[2020-04-11 22:17] LABS: ALBUMIN 4.1 g/dL (3.5-5.0); ALKALINE PHOSPHATASE 57 U/L (38-126); ANION GAP 10.4 MEQ/L (5-15); BLOOD UREA NITROGEN 23 mg/dL (9-20); CHLORIDE 104 mmol/L (98-107); Calcium 9.3 mg/dL (8.4-10.2); Carbon Dioxide 26 mmol/L (22-30); Creatinine 1 0.87 mg/dL (0.66-1.25); Glucose 97 mg/dL (74-106); LDH-LACTATE DEHYDROGENASE 150 U/L (120-246); MAGNESIUM 2.3 mg/dL (1.6-2.3); Potassium 4.1 mmol/L (3.5-5.1); SGOT/AST 32 U/L (17-59); SGPT/ALT 27 U/L (0-50); SODIUM 136 mmol/L (137-145); Total Protein 7.5 g/dL (6.3-8.2)
[2020-04-11] MEDS: ROCEPHIN 1 Gm-D5w 50 ml Bag** 1 G/50 ML IVPB IV ONE (22:18)
[2020-04-11 22:22] LABS: TROPONIN < 0.012 ng/mL (0.000-0.034)
[2020-04-11 22:40] LABS: Appearance CLEAR (CLEAR); Bilirubin NEGATIVE (NEGATIVE); Blood NEGATIVE Ery/ul (0-5); Glucose NEGATIVE (NEGATIVE); Ketones NEGATIVE (NEGATIVE); Leukocyte Esterase NEGATIVE (NEGATIVE); Mucus SLIGHT /HPF (NEGATIVE); Nitrite NEGATIVE (NEGATIVE); Protein,Urine Dip NEGATIVE (Negative); Specific Gravity 1.026 (1.005-1.025); Urobilinogen 4 mg/dL (0-1)
[2020-04-11 23:43] LABS: INFLUENZA A NEGATIVE (NEGATIVE); INFLUENZA B NEGATIVE (NEGATIVE); RESPIRATORY SYNCTIAL VIRUS NEGATIVE (Negative)
[2020-04-12 00:13] VITALS: BP 114/76; PULSE 55; O2SAT 98
--- NOTE | 2020-04-12 08:43 | XRAY ---
Indication: Fever. Comparison: March 28, 2020. Portable chest unchanged again hyperinflated and clear with incidental tiny calcified granulomas. Heart is not enlarged. No new/acute findings.
== END 2020-04-12 00:02 | disposition home or self-care (01) ==
LOC: ED 21:02
DX: R51 Headache (principal); J06.9 Acute upper respiratory infection, unspecified
CPT/HCPCS: 36000; 36415; 71045; 80053; 81001; 82728; 83605; 83615; 83735; 84484; 85025; 85379; 85610; 85730; 86140; 87040; 87631; 93005; 96365; 96374; 96375; 99284; U0003; J0456; J0696; J2270; J2405; A9270-GY

== ENCOUNTER 2020-06-20 11:47 | Emergency (ER) | payer SELFPAY ==
[2020-06-20] MEDS ORDERED: Sodium Chloride 0.9% 1000 ML 1,000 ML IV STA (12:17)
[2020-06-20] MEDS ORDERED: MORPHINE SULFATE 4 MG INJ IV ONE (12:17)
[2020-06-20] MEDS ORDERED: Zofran 4 MG/2 ML VIAL IV ONE (12:17)
--- NOTE | 2020-06-20 12:21 | ERPHSYRPT ---
- History of Present Illness Time Seen by Provider: 06/20/20 12:05 Historian: patient Exam Limitations: no limitations Patient Subjective Stated Complaint: abd pain and diarrhea Triage Nursing Assessment: pt to ED c/o abd pain and diarrhea x 1 day. denies [place] or COVID exposure. rates 10/10 pain. no appeite since last night. tender to palp. pain originates in LLQ and radiates to RLQ at times. Physician History: 49 years old generally healthy male presented in the ER with sudden onset left lower quadrant pain since yesterday, moderate to severe intensity, sharp in nature with occasional radiation to right lower quadrant associated with multiple episodes of loose stools with no hematochezia. Although patient report s initially it was black and now yellow but did not notice any fresh blood. Denies fever or chills/sick contact. No difficulty urination. Timing/Duration: yesterday, gradual onset, worse Activities at Onset: rest Quality: sharpness Abdominal Pain Onset Location: LLQ Pain Radiation: RLQ Severity of Pain-Max: moderate Modifying Factors: Worsens With: defecating, urinating Associated Symptoms: diarrhea, nausea, No fever/chills Previous symptoms: no prior history Allergies/Adverse Reactions: Penicillins Allergy (Verified 04/11/20 21:56) Home Medications: buPROPion HCL [Bupropion HCl] 100 mg PO DAILY 04/11/20 [History] Hx Tetanus, Diphtheria Vaccination/Date Given: Yes Hx Influenza Vaccination/Date Given: Yes Hx Pneumococcal Vaccination/Date Given: No Immunizations Up to Date: Yes Travel Risk - International Travel Have you traveled outside of the country in past 3 weeks: No - Coronavirus Screening Are you exhibiting any of the following symptoms?: Yes Symptoms: Vomiting/Diarrhea Close contact with a COVID-19 positive Pt in past 14-21 Days: No - Review of Systems Constitutional: No Symptoms Eyes: No Symptoms Ears, Nose, & Throat: No Symptoms Respiratory: No Symptoms Cardiac: No Symptoms Abdominal/Gastrointestinal: Abdominal Pain, Diarrhea Genitourinary Symptoms: No Symptoms Musculoskeletal: No Symptoms Skin: No Symptoms Neurological: No Symptoms Psychological: No Symptoms Endocrine: No Symptoms Hematologic/Lymphatic: No Symptoms Immunological/Allergic: No Symptoms - Past Medical History Pertinent Past Medical History: Yes Neurological History: No Pertinent History ENT History: No Pertinent History Cardiac History: No Pertinent History Respiratory History: COPD Endocrine Medical History: No Pertinent History Musculoskeletal History: No Pertinent History GI Medical History: No Pertinent History History: No Pertinent History Psycho-Social History: No Pertinent History Male Reproductive Disorders: No Pertinent History - Past Surgical History Past Surgical History: Yes Neuro Surgical History: No Pertinent History Cardiac: No Pertinent History Respiratory: No Pertinent History Gastrointestinal: Hernia Repair Genitourinary: No Pertinent History Musculoskeletal: Orthopedic Surgery Male Surgical History: No Pertinent History - Social History Smoking Status: Former smoker How long have you smoked: 25 YEARS Exposure to second hand smoke: Yes Drug Use: marijuana Patient Lives Alone: No - Nursing Vital Signs Nursing Vital Signs: Initial Vital Signs Temperature 97.2 F 06/20/20 11:55 Pulse Rate 56 L 06/20/20 11:55 Respiratory Rate 20 06/20/20 11:55 Blood Pressure 119/69 06/20/20 11:55 O2 Sat by Pulse Oximetry 97 06/20/20 11:55 Pain Scale Pain Intensity 7 - Physical Exam General Appearance: no apparent distress Eye Exam: eyes nml inspection Ears, Nose, Throat Exam: normal ENT inspection, pharynx normal Neck Exam: normal inspection, supple, full range of motion Respiratory Exam: normal breath sounds, lungs clear Cardiovascular Exam: regular rate/rhythm, normal heart sounds Gastrointestinal/Abdomen Exam: soft, tenderness, guarding (Left lower quadrant) Back Exam: normal inspection, normal range of motion, No CVA tenderness Extremity Exam: normal inspection, normal range of motion Neurologic Exam: alert, oriented x 3, cooperative Skin Exam: normal color, warm SpO2 Interpretation: normal SpO2: 97 O2 Delivery: Room Air Ordered Tests: Active Orders 24 hr Category Date Time Status IV Insertion STAT Care 06/20/20 12:17 Active NPO (ED) STAT Care 06/20/20 12:17 Active ABDOMEN AND PELVIS W CONTRAST [CT] Stat Exams 06/20/20 12:17 Taken CBC W DIFF Stat Lab 06/20/20 13:10 Completed CMP Stat Lab 06/20/20 13:10 Completed LIPASE Stat Lab 06/20/20 13:10 Completed UA W/RFX UR CULTURE Stat Lab 06/20/20 14:15 Completed Medication Summary Discontinued Medications Generic Name Dose Route Start Last Admin Trade Name Freq PRN Reason Stop Dose Admin Sodium Chloride 1,000 mls @ 999 mls/hr 06/20/20 12:17 06/20/20 14:20 Sodium Chloride 0.9% 1000 Ml IV 06/20/20 13:17 999 mls/hr .Q1H1M STA Administration Sodium Chloride Confirm 06/20/20 13:38 Sodium Chloride 0.9% 1000 Ml Administered 06/20/20 13:39 Dose 1,000 mls @ ud .ROUTE .STK-MED ONE Morphine Sulfate 4 mg 06/20/20 12:17 06/20/20 13:07 Morphine Sulfate 4 Mg Inj IV 06/20/20 12:18 4 mg STAT ONE Administration Morphine Sulfate Confirm 06/20/20 13:05 Morphine Sulfate 4 Mg Inj Administered 06/20/20 13:06 Dose 4 mg .ROUTE .STK-MED ONE Ondansetron HCl 4 mg 06/20/20 12:17 06/20/20 13:07 Zofran 4 Mg/2 Ml Vial IV 06/20/20 12:18 4 mg STAT ONE Administration Ondansetron HCl Confirm 06/20/20 13:05 Zofran 4 Mg/2 Ml Vial Administered 06/20/20 13:06 Dose 4 mg .ROUTE .STK-MED ONE Lab/Rad Data: Laboratory Result Diagrams 06/20/20 13:10 06/20/20 13:10 Laboratory Results 06/20/20 06/20/20 06/20/20 Range/Units 14:15 13:10 13:10 WBC 7.4 (4.0-10.5) K/mm3 RBC 4.82 (4.1-5.6) M/mm3 Hgb 15.4 (12.5-18.0) gm/dl Hct 45.8 (42-50) % MCV 95.0 (78-100) fl MCH 32.0 (26-32) pg MCHC 33.6 (32-36) g/dl RDW 13.6 (11.5-14.0) % Plt Count 154 (150-450) K/mm3 MPV 11.6 H (7.5-11.0) fl Gran % 83.5 H (36.0-66.0) % Eos # (Auto) 0.01 (0-0.5) Absolute Lymphs (auto) 0.67 L (1.0-4.6) Absolute Monos (auto) 0.54 (0.0-1.3) Lymphocytes % 9.0 L (24.0-44.0) % Monocytes % 7.3 (0.0-12.0) % Eosinophils % 0.1 (0.00-5.0) % Basophils % 0.1 (0.0-0.4) % Absolute Granulocytes 6.20 (1.4-6.9) Basophils # 0.01 (0-0.4) Sodium 137 (137-145) mmol/L Potassium 3.7 (3.5-5.1) mmol/L Chloride 106 (98-107) mmol/L Carbon Dioxide 26 (22-30) mmol/L Anion Gap 8.6 (5-15) MEQ/L BUN 13 (9-20) mg/dL Creatinine 1.02 (0.66-1.25) mg/dL Estimated GFR > 60.0 ML/MIN Glucose 103 (74-106) mg/dL Calcium 9.2 (8.4-10.2) mg/dL Total Bilirubin 0.80 (0.2-1.3) mg/dL AST 32 (17-59) U/L ALT 44 (0-50) U/L Alkaline Phosphatase 74 (38-126) U/L Serum Total Protein 7.7 (6.3-8.2) g/dL Albumin 4.2 (3.5-5.0) g/dL Lipase 51 (23-300) U/L Urine Color VADIM (YELLOW) Urine Appearance SLIGHTLY CLOUDY (CLEAR) Urine pH 5.0 (5-6) Ur Specific [place] 1.030 (1.005-1.025) Urine Protein 30 (Negative) Urine Ketones NEGATIVE (NEGATIVE) Urine Blood SMALL (0-5) Quan/ul Urine Nitrite NEGATIVE (NEGATIVE) Urine Bilirubin NEGATIVE (NEGATIVE) Urine Urobilinogen NEGATIVE (0-1) mg/dL Ur Leukocyte Esterase NEGATIVE (NEGATIVE) Urine WBC (Auto) NONE (0-5) /HPF Urine RBC (Auto) NONE (0-2) /HPF U Epithel Cells (Auto) NONE (FEW) /HPF Urine Bacteria (Auto) NONE (NEGATIVE) /HPF Urine Mucus (Auto) SLIGHT (NEGATIVE) /HPF Urine Culture Reflexed NO (NO) Urine Glucose NEGATIVE (NEGATIVE) mg/dL - Progress Progress: improved, pain not gone completely, re-examined Progress Note: 06/20/20 15:16 49 years old is evaluated for left lower quadrant pain with loose stool/diarrhea. He is given fluid bolus along with morphine, on reevaluation feeling better but still have some pain and is given another dose of morphine 2 mg and IV Toradol. Has normal white count, grossly unremarkable chemistries. No signs of UTI. I have obtained CT abdomen pelvis with contrast which showed diverticulosis but no diverticulitis and no other acute intra-abdominal pathology. I do not know the exact cause of her pain could be related to recent diarrhea/gastroenteritis. Recommended taking Tylenol ibuprofen as needed and outpatient follow-up for reevaluation. At this point I do not think he needs any antibiotic or any further work-up in the ER and is stable for discharge. Discussed in length with patient/ about symptoms/signs of worsening needing return to ER which did seem understanding. Counseled pt/family regarding: lab results, diagnosis, need for follow-up, rad results - Departure Departure Disposition: Home Clinical Impression: Left lower quadrant pain Condition: Stable Critical Care Time: No Referrals: SUKHWINDER ROSARIO MD [Primary Care Provider] - (1-2 days for reevaluation) Instructions: Acute Abdomen (Belly Pain), Adult (DC) Additional Instructions: Take Tylenol/ibuprofen as needed for pain. Follow-up with your primary care physician for reevaluation. Return to ER for intractable pain/fever chills etc. Prescriptions: Ibuprofen 600 mg PO Q6HPRN PRN 10 Days #20 tablet PRN Reason: Pain
[2020-06-20] MEDS ORDERED: Zofran 4 MG/2 ML VIAL ONE (13:05)
[2020-06-20] MEDS ORDERED: MORPHINE SULFATE 4 MG INJ ONE (13:05)
[2020-06-20 13:27] LABS: BASOPHIL % 0.1 % (0.0-0.4); Basophil (Absolute #) 0.01 (0-0.4); Eosinophil % 0.1 % (0.00-5.0); Eosinophil (Absolute #) 0.01 (0-0.5); Hematocrit 45.8 % (42-50); Hemoglobin 15.4 gm/dl (12.5-18.0); Lymphocyte (Absolute #) 0.67 (1.0-4.6); Mean Corpuscular Hgb Concent. 33.6 g/dl (32-36); Mean Platelet Volume 11.6 fl (7.5-11.0); Monocyte (Absolute #) 0.54 (0.0-1.3); Monocytes % 7.3 % (0.0-12.0); Neutrophil % 83.5 % (36.0-66.0); Platelet Count 154 K/mm3 (150-450); Red Blood Count 4.82 M/mm3 (4.1-5.6); Red Cell Distribution Width 13.6 % (11.5-14.0); White Blood Count 7.4 K/mm3 (4.0-10.5)
[2020-06-20] MEDS ORDERED: Sodium Chloride 0.9% 1000 ML 1,000 ML ONE (13:38)
[2020-06-20 13:54] LABS: ALBUMIN 4.2 g/dL (3.5-5.0); ALKALINE PHOSPHATASE 74 U/L (38-126); ANION GAP 8.6 MEQ/L (5-15); BLOOD UREA NITROGEN 13 mg/dL (9-20); CHLORIDE 106 mmol/L (98-107); Calcium 9.2 mg/dL (8.4-10.2); Carbon Dioxide 26 mmol/L (22-30); Creatinine 1 1.02 mg/dL (0.66-1.25); EST GLOMERULAR FILTRATION RATE > 60.0 ML/MIN; Glucose 103 mg/dL (74-106); LIPASE 51 U/L (23-300); Potassium 3.7 mmol/L (3.5-5.1); SGOT/AST 32 U/L (17-59); SGPT/ALT 44 U/L (0-50); SODIUM 137 mmol/L (137-145); Total Protein 7.7 g/dL (6.3-8.2)
[2020-06-20 14:24] LABS: Appearance SLIGHTLY CLOUDY (CLEAR); Bilirubin NEGATIVE (NEGATIVE); Blood SMALL Ery/ul (0-5); Glucose NEGATIVE (NEGATIVE); Ketones NEGATIVE (NEGATIVE); Leukocyte Esterase NEGATIVE (NEGATIVE); Mucus SLIGHT /HPF (NEGATIVE); Nitrite NEGATIVE (NEGATIVE); Protein,Urine Dip 30 (Negative); Urobilinogen NEGATIVE mg/dL (0-1)
[2020-06-20] MEDS ORDERED: TORAdol 30 mg Injection IV ONE (15:15)
[2020-06-20] MEDS ORDERED: MORPHINE SULFATE 2 MG INJ IV ONE (15:15)
[2020-06-20] MEDS ORDERED: TORAdol 30 mg Injection ONE (15:21)
[2020-06-20] MEDS ORDERED: MORPHINE SULFATE 2 MG INJ ONE (15:22)
[2020-06-20 16:24] VITALS: BP 133/85; PULSE 65; O2SAT 99
--- NOTE | 2020-06-20 19:47 | XRAY ---
Indication: Abdomen pain. Diverticulitis. Multiple contiguous axial images obtained through the abdomen and pelvis using 80 cc Isovue 370 contrast. Comparison: May 26, 2018. Lung bases again demonstrates minimal bibasilar dependent atelectasis. Heart is not enlarged. Noncontrasted stomach and bowel loops appear nonobstructed. Normal appendix. Descending colon demonstrates new circumferential wall thickening with minimal stranding favor colitis. Tiny free fluid in the pelvis. No walled off fluid collection or free air. Stable benign-appearing chunky right adrenal calcifications. Remaining liver, gallbladder, pancreas, spleen, left adrenal gland, kidneys, ureters, bladder, and aorta appear unremarkable. No pathologic retroperitoneal lymphadenopathy. Osseous structures intact again with mild L4-L5 degenerative disc disease and benign right innominate bone lytic lesion. Impression: 1. New descending colon wall thickening with stranding favoring colitis with tiny pelvic free fluid. No perforation. 2. Stable benign right adrenal calcifications and chronic bony findings. Comment: Preliminary interpretation was made by [facility] who does not report abnormal colon findings. Telephone report was given to Dr. Dunbar in the ER at 1942 hrs. on June 20, 2020.
== END 2020-06-20 16:26 | disposition home or self-care (01) ==
LOC: ED 11:47
DX: R10.32 Left lower quadrant pain (principal)
CPT/HCPCS: 36000; 36415; 74177; 80053; 81001; 83690; 85025; 96374; 96375; 96376; 99284; J1885; J2270; J2405

== ENCOUNTER 2020-06-21 18:37 | Emergency (ER) | payer SELFPAY ==
[2020-06-21] MEDS ORDERED: Sodium Chloride 0.9% 1000 ML 1,000 ML IV STA (18:55)
[2020-06-21] MEDS ORDERED: SUBLIMAZE 100 MCG/2 ML IV ONE (18:57)
[2020-06-21] MEDS ORDERED: Zofran 4 MG/2 ML VIAL IV ONE (18:58)
[2020-06-21] MEDS ORDERED: SUBLIMAZE 100 MCG/2 ML ONE (18:59)
[2020-06-21] MEDS ORDERED: Zofran 4 MG/2 ML VIAL ONE (18:59)
[2020-06-21] MEDS ORDERED: Sodium Chloride 0.9% 1000 ML 1,000 ML ONE (18:59)
[2020-06-21 19:05] LABS: Absolute Neutrophil Ct (ANC) 3.35 (1.4-6.9); BASOPHIL % 0.2 % (0.0-0.4); Basophil (Absolute #) 0.01 (0-0.4); Eosinophil % 1.7 % (0.00-5.0); Eosinophil (Absolute #) 0.09 (0-0.5); Hemoglobin 14.5 gm/dl (12.5-18.0); Lymphocyte (Absolute #) 1.11 (1.0-4.6); Lymphocytes % 20.4 % (24.0-44.0); Mean Cell Volume 95.6 fl (78-100); Mean Corpuscular Hemoglobin 32.2 pg (26-32); Mean Corpuscular Hgb Concent. 33.7 g/dl (32-36); Mean Platelet Volume 11.7 fl (7.5-11.0); Monocyte (Absolute #) 0.88 (0.0-1.3); Monocytes % 16.2 % (0.0-12.0); Neutrophil % 61.5 % (36.0-66.0); Platelet Count 156 K/mm3 (150-450); Red Cell Distribution Width 13.4 % (11.5-14.0); White Blood Count 5.4 K/mm3 (4.0-10.5)
[2020-06-21 19:16] LABS: ALBUMIN 3.7 g/dL (3.5-5.0); ALKALINE PHOSPHATASE 62 U/L (38-126); AMYLASE 76 U/L (30-110); BLOOD UREA NITROGEN 18 mg/dL (9-20); CHLORIDE 108 mmol/L (98-107); Carbon Dioxide 26 mmol/L (22-30); Creatinine 1 0.99 mg/dL (0.66-1.25); EST GLOMERULAR FILTRATION RATE > 60.0 ML/MIN; Glucose 141 mg/dL (74-106); LIPASE 71 U/L (23-300); Potassium 3.9 mmol/L (3.5-5.1); SGOT/AST 35 U/L (17-59); SGPT/ALT 42 U/L (0-50); SODIUM 137 mmol/L (137-145); Total Protein 6.9 g/dL (6.3-8.2)
--- NOTE | 2020-06-21 19:18 | ERPHSYRPT ---
- History of Present Illness Historian: patient Exam Limitations: no limitations Patient Subjective Stated Complaint: pt reports recent visit yesterday for same symptoms, abdominal pain and diarrhea persists today. states his initial CT was negative but was called later and told he had colitis. Triage Nursing Assessment: pt is aox3, pupils perrl, afebrile, resps easy and non labored, radial pulses strong and equal, cap refill < 3 seconds, pt skin pale warm dry. abd soft, tender to the left lower quad. Physician History: 49 yo wm w diarrhea x1day/LLQ stabbing pain rated 8 on scale wo fever/melena/hematochezia/dysuria/hematuria/chest pain. Pt seen in ER yesterday and diagnosed w colitis per CT. Timing/Duration: yesterday Activities at Onset: rest Quality: stabbing Abdominal Pain Onset Location: LLQ Pain Radiation: no radiation Severity of Pain-Max: severe Severity of Pain-Current: severe Modifying Factors: Improves With: nothing Associated Symptoms: diarrhea, loss of appetite, No back, No chest pain, No diap horesis, No fever/chills, No fatigue, No headache, No heartburn, No nausea, No neck pain, No rash, No shortness of breath, No syncope, No testicular pain, No vomiting, No weakness Previous symptoms: no prior history Allergies/Adverse Reactions: Penicillins Allergy (Verified 06/21/20 18:53) Hx Tetanus, Diphtheria Vaccination/Date Given: Yes Hx Influenza Vaccination/Date Given: No Hx Pneumococcal Vaccination/Date Given: No Immunizations Up to Date: Yes Travel Risk - International Travel Have you traveled outside of the country in past 3 weeks: No - Coronavirus Screening Are you exhibiting any of the following symptoms?: No Close contact with a COVID-19 positive Pt in past 14-21 Days: No - Review of Systems Constitutional: No Symptoms Eyes: No Symptoms Ears, Nose, & Throat: No Symptoms Respiratory: No Symptoms Cardiac: No Symptoms Genitourinary Symptoms: No Symptoms Musculoskeletal: No Symptoms Skin: No Symptoms Neurological: No Symptoms Psychological: No Symptoms Endocrine: No Symptoms Hematologic/Lymphatic: No Symptoms Immunological/Allergic: No Symptoms - Past Medical History Pertinent Past Medical History: Yes Neurological History: No Pertinent History ENT History: No Pertinent History Cardiac History: No Pertinent History Respiratory History: COPD Endocrine Medical History: No Pertinent History Musculoskeletal History: No Pertinent History GI Medical History: No Pertinent History History: No Pertinent History Psycho-Social History: No Pertinent History Male Reproductive Disorders: No Pertinent History - Past Surgical History Past Surgical History: Yes Neuro Surgical History: No Pertinent History Cardiac: No Pertinent History Respiratory: No Pertinent History Gastrointestinal: Hernia Repair Genitourinary: No Pertinent History Musculoskeletal: Orthopedic Surgery Male Surgical History: No Pertinent History - Social History Smoking Status: Former smoker How long have you smoked: 25 YEARS Exposure to second hand smoke: No Drug Use: none Patient Lives Alone: No Significant Family History: no pertinent family hx - Nursing Vital Signs Nursing Vital Signs: Initial Vital Signs Temperature 98 F 06/21/20 18:43 Pulse Rate 55 L 06/21/20 18:43 Respiratory Rate 18 06/21/20 18:43 Blood Pressure 133/74 06/21/20 18:43 O2 Sat by Pulse Oximetry 99 06/21/20 18:43 Pain Scale Pain Intensity 10 - Physical Exam SpO2: 99 - Course Nursing assessment & vital signs reviewed: Yes Ordered Tests: Active Orders 24 hr Category Date Time Status IV Insertion STAT Care 06/21/20 18:55 Active AMYLASE Stat Lab 06/21/20 18:50 Completed CBC W DIFF Stat Lab 06/21/20 18:50 Completed CMP Stat Lab 06/21/20 18:50 Completed LIPASE Stat Lab 06/21/20 18:50 Completed UA W/RFX UR CULTURE Stat Lab 06/21/20 19:30 Received Medication Summary Generic Name Dose Route Start Last Admin Trade Name Freq PRN Reason Stop Dose Admin Sodium Chloride 1,000 mls @ 999 mls/hr 06/21/20 18:55 06/21/20 19:03 Sodium Chloride 0.9% 1000 Ml IV 06/21/20 19:55 999 mls/hr .Q1H1M STA Administration Discontinued Medications Generic Name Dose Route Start Last Admin Trade Name Freq PRN Reason Stop Dose Admin Fentanyl Citrate 100 mcg 06/21/20 18:57 06/21/20 19:04 Sublimaze 100 Mcg/2 Ml IV 06/21/20 18:58 100 mcg STAT ONE Administration Fentanyl Citrate Confirm 06/21/20 18:59 Sublimaze 100 Mcg/2 Ml Administered 06/21/20 19:00 Dose 100 mcg .ROUTE .STK-MED ONE Sodium Chloride Confirm 06/21/20 18:59 Sodium Chloride 0.9% 1000 Ml Administered 10/12/20 19:00 Dose 1,000 mls @ ud .ROUTE .STK-MED ONE Ondansetron HCl 4 mg 06/21/20 18:58 06/21/20 19:03 Zofran 4 Mg/2 Ml Vial IV 06/21/20 18:59 4 mg STAT ONE Administration Ondansetron HCl Confirm 06/21/20 18:59 Zofran 4 Mg/2 Ml Vial Administered 06/21/20 19:00 Dose 4 mg .ROUTE .STK-MED ONE Lab/Rad Data: Laboratory Result Diagrams 06/21/20 18:50 06/21/20 18:50 Laboratory Results 06/21/20 06/21/20 Range/Units 18:50 18:50 WBC 5.4 (4.0-10.5) K/mm3 RBC 4.50 (4.1-5.6) M/mm3 Hgb 14.5 (12.5-18.0) gm/dl Hct 43.0 (42-50) % MCV 95.6 (78-100) fl MCH 32.2 H (26-32) pg MCHC 33.7 (32-36) g/dl RDW 13.4 (11.5-14.0) % Plt Count 156 (150-450) K/mm3 MPV 11.7 H (7.5-11.0) fl Gran % 61.5 (36.0-66.0) % Eos # (Auto) 0.09 (0-0.5) Absolute Lymphs (auto) 1.11 (1.0-4.6) Absolute Monos (auto) 0.88 (0.0-1.3) Lymphocytes % 20.4 L (24.0-44.0) % Monocytes % 16.2 H (0.0-12.0) % Eosinophils % 1.7 (0.00-5.0) % Basophils % 0.2 (0.0-0.4) % Absolute Granulocytes 3.35 (1.4-6.9) Basophils # 0.01 (0-0.4) Sodium 137 (137-145) mmol/L Potassium 3.9 (3.5-5.1) mmol/L Chloride 108 H (98-107) mmol/L Carbon Dioxide 26 (22-30) mmol/L Anion Gap 7.0 (5-15) MEQ/L BUN 18 (9-20) mg/dL Creatinine 0.99 (0.66-1.25) mg/dL Estimated GFR > 60.0 ML/MIN Glucose 141 H (74-106) mg/dL Calcium 9.0 (8.4-10.2) mg/dL Total Bilirubin 0.60 (0.2-1.3) mg/dL AST 35 (17-59) U/L ALT 42 (0-50) U/L Alkaline Phosphatase 62 (38-126) U/L Serum Total Protein 6.9 (6.3-8.2) g/dL Albumin 3.7 (3.5-5.0) g/dL Amylase 76 (30-110) U/L Lipase 71 (23-300) U/L - Progress Progress: improved Progress Note: 06/21/20 19:39 Pt given 1L NS bolus/100umg IV Fentanyl/4mg IV zofran w improvement Counseled pt/family regarding: lab results, need for follow-up - Departure Departure Disposition: Home Clinical Impression: Colitis Condition: Stable Critical Care Time: No Referrals: SUKHWINDER ROSARIO MD [Primary Care Provider] - Instructions: Colitis Additional Instructions: Fluids Start cipro/flagyl Bentyl as needed for pain/diarrhea Follow up with family MD in 1-2 days Return to ER for increasing pain or temperature greater than 100.5 Prescriptions: Dicyclomine HCl 20 mg [Bentyl 20 mg] 20 mg PO Q6HPRN PRN #15 tablet PRN Reason: pain/diarrhea Ciprofloxacin HCl [Cipro] 500 mg PO BID #14 tablet Metronidazole 500 mg [Flagyl 500 MG] 500 mg PO TID #21 tablet
[2020-06-21 19:46] LABS: Appearance SLIGHTLY CLOUDY (CLEAR); Bilirubin NEGATIVE (NEGATIVE); Blood SMALL Ery/ul (0-5); Glucose NEGATIVE (NEGATIVE); Ketones NEGATIVE (NEGATIVE); Leukocyte Esterase NEGATIVE (NEGATIVE); Mucus SLIGHT /HPF (NEGATIVE); Nitrite NEGATIVE (NEGATIVE); Protein,Urine Dip NEGATIVE (Negative); Specific Gravity 1.033 (1.005-1.025); Urobilinogen NEGATIVE mg/dL (0-1)
[2020-06-21 19:49] VITALS: BP 119/85; PULSE 52; O2SAT 97
== END 2020-06-21 19:57 | disposition home or self-care (01) ==
LOC: ED 18:37
DX: K52.9 Noninfective gastroenteritis and colitis, unspecified (principal)
CPT/HCPCS: 36000; 36415; 80053; 81001; 82150; 83690; 85025; 96374; 96375; 99284; J2405; J3010

== ENCOUNTER 2021-02-02 13:32 | Emergency (ER) | payer MEDICAID ==
[2021-02-02 14:26] VITALS: O2SAT 99
--- NOTE | 2021-02-02 14:52 | ERPHSYRPT ---
- History of Present Illness Time Seen by Provider: 02/02/21 14:55 Historian: patient Exam Limitations: no limitations Patient Subjective Stated Complaint: Pt states yesterday he was vomiting at work and has had cough for 2 days. Pt states stomach hurts "someone is taking a hammer to it" and coughing up green and white sputum. Triage Nursing Assessment: Patient presents to ED with abdominal pain. Bowel sounds present x4. Tender at rest and upon palpation. Rebound tenderness present RLQ. Last BM this AM. Physician History: Patient is a 50-year-old male presents to our ED for evaluation of abdominal pain. Symptoms started yesterday. Patient states he has been coughing for the past 2 days. Yesterday he was at work and vomited. Since then patient has had periumbilical pain. Pain described as a hammer hit his abdomen. Pain is localized to the right of the umbilicus. No associated trauma fever. Symptoms are moderate in intensity. No specific worsening factors. Patient voices no other complaints or concerns at this time. Timing/Duration: yesterday Activities at Onset: none Quality: aching Abdominal Pain Onset Location: periumbilical Pain Radiation: no radiation Severity of Pain-Max: moderate Severity of Pain-Current: mild Modifying Factors: Improves With: nothing Associated Symptoms: denies symptoms, No chest pain Previous symptoms: no prior history Allergies/Adverse Reactions: Penicillins Allergy (Verified 02/02/21 14:27) Hx Tetanus, Diphtheria Vaccination/Date Given: Yes Hx Influenza Vaccination/Date Given: No Hx Pneumococcal Vaccination/Date Given: No Travel Risk - International Travel Have you traveled outside of the country in past 3 weeks: No - Coronavirus Screening Are you exhibiting any of the following symptoms?: No Close contact with a COVID-19 positive Pt in past 14-21 Days: No - Vaccine Status Have you recieved a Covid-19 vaccination: Yes 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 - Vaccination Dates Dates if Unknown: May Comment: Unsure of date - Review of Systems Constitutional: No Symptoms, No Fever, No Chills Eyes: No Symptoms Ears, Nose, & Throat: No Symptoms Respiratory: No Symptoms, No Cough, No Dyspnea Cardiac: No Symptoms, No Chest Pain, No Edema, No Syncope Abdominal/Gastrointestinal: No Symptoms, No Abdominal Pain, No Nausea, No Vomiting, No Diarrhea Genitourinary Symptoms: No Symptoms, No Dysuria Musculoskeletal: No Symptoms, No Back Pain, No Neck Pain Skin: No Symptoms, No Rash Neurological: No Symptoms, No Dizziness, No Focal Weakness, No Sensory Changes Psychological: No Symptoms Endocrine: No Symptoms Hematologic/Lymphatic: No Symptoms Immunological/Allergic: No Symptoms All Other Systems: Reviewed and Negative - Past Medical History Pertinent Past Medical History: Yes Neurological History: No Pertinent History ENT History: No Pertinent History Cardiac History: No Pertinent History Respiratory History: COPD Endocrine Medical History: No Pertinent History Musculoskeletal History: No Pertinent History GI Medical History: No Pertinent History History: No Pertinent History Psycho-Social History: No Pertinent History Male Reproductive Disorders: No Pertinent History - Past Surgical History Past Surgical History: Yes Neuro Surgical History: No Pertinent History Cardiac: No Pertinent History Respiratory: No Pertinent History Gastrointestinal: Hernia Repair Genitourinary: No Pertinent History Musculoskeletal: Orthopedic Surgery Male Surgical History: No Pertinent History - Social History Smoking Status: Former smoker How long have you smoked: 25 YEARS Exposure to second hand smoke: No Drug Use: marijuana Patient Lives Alone: No Significant Family History: no pertinent family hx - Nursing Vital Signs Nursing Vital Signs: Initial Vital Signs Temperature 98.1 F 02/02/21 14:14 Pulse Rate 52 L 02/02/21 14:14 Blood Pressure 122/76 02/02/21 14:14 O2 Sat by Pulse Oximetry 99 02/02/21 14:14 Pain Scale Pain Intensity 5 - Physical Exam General Appearance: no apparent distress, alert Eye Exam: PERRL/EOMI, eyes nml inspection Ears, Nose, Throat Exam: normal ENT inspection, pharynx normal, moist mucous membranes Neck Exam: normal inspection, non-tender, supple, full range of motion Respiratory Exam: normal breath sounds, lungs clear, No respiratory distress Cardiovascular Exam: regular rate/rhythm, normal heart sounds Gastrointestinal/Abdomen Exam: soft, other, No tenderness, No mass, No pulsatile mass (Tenderness palpation to the right of the umbilicus.), No rebound, No hernia Back Exam: normal inspection, normal range of motion, No CVA tenderness, No vertebral tenderness Extremity Exam: normal inspection, normal range of motion, pelvis stable Neurologic Exam: alert, oriented x 3, cooperative, normal mood/affect, sensation nml, No motor deficits Skin Exam: normal color, warm, dry Lymphatic Exam: No adenopathy SpO2 Interpretation: normal SpO2: 99 O2 Delivery: Room Air - Course Nursing assessment & vital signs reviewed: Yes EKG Interpreted by Me: RATE, Sinus Jamil, NORMAL AXIS, NORMAL INTERVALS (48) Ordered Tests: Active Orders 24 hr Category Date Time Status EKG-ER Only STAT Care 02/02/21 14:53 Active IV Insertion STAT Care 02/02/21 14:53 Active ABDOMEN AND PELVIS W CONTRAST [CT] Stat Exams 02/02/21 16:31 Completed CBC W DIFF Stat Lab 02/02/21 14:50 Completed CMP Stat Lab 02/02/21 14:50 Completed LIPASE Stat Lab 02/02/21 14:50 Completed TROPONIN Q3H Lab 02/02/21 14:50 Completed TROPONIN Q3H Lab 02/02/21 18:00 Ordered TROPONIN Q3H Lab 02/02/21 21:00 Ordered TROPONIN Q3H Lab 02/03/21 00:00 Ordered TROPONIN Q3H Lab 02/03/21 03:00 Ordered UA W/RFX UR CULTURE Stat Lab 02/02/21 14:50 Completed Medication Summary Generic Name Dose Route Start Last Admin Trade Name Freq PRN Reason Stop Dose Admin Sodium Chloride 1,000 mls @ 100 mls/hr 02/02/21 15:00 02/02/21 15:02 Sodium Chloride 0.9% 1000 Ml IV 03/04/21 14:59 100 mls/hr .Q10H RAND Administration Discontinued Medications Generic Name Dose Route Start Last Admin Trade Name Freq PRN Reason Stop Dose Admin Morphine Sulfate 4 mg 02/02/21 14:56 02/02/21 15:01 Morphine Sulfate 4 Mg Inj IV 02/02/21 14:57 4 mg STAT ONE Administration Morphine Sulfate Confirm 02/02/21 15:00 Morphine Sulfate 4 Mg Inj Administered 02/02/21 15:01 Dose 4 mg .ROUTE .STK-MED ONE Ondansetron HCl 4 mg 02/02/21 14:57 02/02/21 15:02 Zofran 4 Mg/2 Ml Vial IV 02/02/21 14:58 4 mg STAT ONE Administration Ondansetron HCl Confirm 02/02/21 15:00 Zofran 4 Mg/2 Ml Vial Administered 02/02/21 15:01 Dose 4 mg .ROUTE .STK-MED ONE Lab/Rad Data: Laboratory Result Diagrams 02/02/21 14:50 02/02/21 14:50 Laboratory Results 02/02/21 02/02/21 02/02/21 Range/Units 14:50 14:50 14:50 WBC 8.3 (4.0-10.5) K/mm3 RBC 4.80 (4.1-5.6) M/mm3 Hgb 15.1 (12.5-18.0) gm/dl Hct 45.2 (42-50) % MCV 94.2 (78-100) fl MCH 31.5 (26-32) pg MCHC 33.4 (32-36) g/dl RDW 13.1 (11.5-14.0) % Plt Count 212 (150-450) K/mm3 MPV 12.1 H (7.5-11.0) fl Gran % 72.8 H (36.0-66.0) % Eos # (Auto) 0.22 (0-0.5) Absolute Lymphs (auto) 1.50 (1.0-4.6) Absolute Monos (auto) 0.53 (0.0-1.3) Lymphocytes % 18.0 L (24.0-44.0) % Monocytes % 6.4 (0.0-12.0) % Eosinophils % 2.6 (0.00-5.0) % Basophils % 0.2 (0.0-0.4) % Absolute Granulocytes 6.07 (1.4-6.9) Basophils # 0.02 (0-0.4) Sodium 137 (137-145) mmol/L Potassium 4.0 (3.5-5.1) mmol/L Chloride 106 (98-107) mmol/L Carbon Dioxide 24 (22-30) mmol/L Anion Gap 12.2 (5-15) MEQ/L BUN 19 (9-20) mg/dL Creatinine 0.90 (0.66-1.25) mg/dL Estimated GFR > 60.0 ML/MIN Glucose 109 H (74-106) mg/dL Calcium 9.4 (8.4-10.2) mg/dL Total Bilirubin 0.70 (0.2-1.3) mg/dL AST 35 (17-59) U/L ALT 47 (0-50) U/L Alkaline Phosphatase 59 (38-126) U/L Troponin I < 0.012 (0.000-0.034) ng/mL Serum Total Protein 7.8 (6.3-8.2) g/dL Albumin 4.4 (3.5-5.0) g/dL Lipase 71 (23-300) U/L Urine Color (YELLOW) Urine Appearance (CLEAR) Urine pH (5-6) Ur Specific [place]ton (1.005-1.025) Urine Protein (Negative) Urine Ketones (NEGATIVE) Urine Blood (0-5) Quan/ul Urine Nitrite (NEGATIVE) Urine Bilirubin (NEGATIVE) Urine Urobilinogen (0-1) mg/dL Ur Leukocyte Esterase (NEGATIVE) Urine WBC (Auto) (0-5) /HPF Urine RBC (Auto) (0-2) /HPF U Epithel Cells (Auto) (FEW) /HPF Urine Bacteria (Auto) (NEGATIVE) /HPF Urine Mucus (Auto) (NEGATIVE) /HPF Urine Culture Reflexed (NO) Urine Glucose (NEGATIVE) mg/dL 02/02/21 Range/Units 14:50 WBC (4.0-10.5) K/mm3 RBC (4.1-5.6) M/mm3 Hgb (12.5-18.0) gm/dl Hct (42-50) % MCV (78-100) fl MCH (26-32) pg MCHC (32-36) g/dl RDW (11.5-14.0) % Plt Count (150-450) K/mm3 MPV (7.5-11.0) fl Gran % (36.0-66.0) % Eos # (Auto) (0-0.5) Absolute Lymphs (auto) (1.0-4.6) Absolute Monos (auto) (0.0-1.3) Lymphocytes % (24.0-44.0) % Monocytes % (0.0-12.0) % Eosinophils % (0.00-5.0) % Basophils % (0.0-0.4) % Absolute Granulocytes (1.4-6.9) Basophils # (0-0.4) Sodium (137-145) mmol/L Potassium (3.5-5.1) mmol/L Chloride (98-107) mmol/L Carbon Dioxide (22-30) mmol/L Anion Gap (5-15) MEQ/L BUN (9-20) mg/dL Creatinine (0.66-1.25) mg/dL Estimated GFR ML/MIN Glucose (74-106) mg/dL Calcium (8.4-10.2) mg/dL Total Bilirubin (0.2-1.3) mg/dL AST (17-59) U/L ALT (0-50) U/L Alkaline Phosphatase (38-126) U/L Troponin I (0.000-0.034) ng/mL Serum Total Protein (6.3-8.2) g/dL Albumin (3.5-5.0) g/dL Lipase (23-300) U/L Urine Color YELLOW (YELLOW) Urine Appearance SLIGHTLY CLOUDY (CLEAR) Urine pH 5.0 (5-6) Ur Specific [place] 1.029 (1.005-1.025) Urine Protein NEGATIVE (Negative) Urine Ketones NEGATIVE (NEGATIVE) Urine Blood NEGATIVE (0-5) Quan/ul Urine Nitrite NEGATIVE (NEGATIVE) Urine Bilirubin NEGATIVE (NEGATIVE) Urine Urobilinogen NEGATIVE (0-1) mg/dL Ur Leukocyte Esterase NEGATIVE (NEGATIVE) Urine WBC (Auto) NONE (0-5) /HPF Urine RBC (Auto) NONE (0-2) /HPF U Epithel Cells (Auto) NONE (FEW) /HPF Urine Bacteria (Auto) NONE (NEGATIVE) /HPF Urine Mucus (Auto) SLIGHT (NEGATIVE) /HPF Urine Culture Reflexed NO (NO) Urine Glucose NEGATIVE (NEGATIVE) mg/dL - Progress Progress: improved Progress Note: Patient reassessed. Patient asymptomatic. Work-up reveals significant diffuse fecal stasis. Otherwise negative CT. Laboratory work-up essentially nonremarkable. Will discharge home. Patient will self treat with [id number] laxative. Work note provided. Patient voices no other complaints at this time. He agrees to follow-up with primary care doctor within 48 hours for reevaluation. Patient/significant other bedside voiced no other complaints concerns at this time. They are ready for discharge. Portions of this note were created with voice recognition technology. There may be grammatical, spelling, punctuation or sound alike errors 02/02/21 18:21 Counseled pt/family regarding: lab results, diagnosis, need for follow-up, rad results - Departure Departure Disposition: Home Clinical Impression: Constipation, Adrenal calcification Condition: Stable Critical Care Time: No Referrals: SUKHWINDER ROSARIO MD [Primary Care Provider] - Additional Instructions: Discharge/Care Plan GUILLE BECKFORD JR was seen on 02/02/21 in the Emergency Room. The patient was counseled regarding Diagnosis,Lab results, Imaging studies, need for follow up and when to return to the Emergency Room. Prescriptions given: Discharge Note I have spoken with the patient and/or caregivers. I have explained the patient's condition, diagnosis and treatment plan based on the information available to me at this time. I have answered the patient's and/or caregiver's questions and addressed any concerns. The patient and/or caregivers have as good understanding of the patient's diagnosis, condition and treatment plan as can be expected at this point. The vital signs have been stable. The patient's condition is stable and appropriate for discharge from the emergency department. The patient will pursue further outpatient evaluation with the primary care physician or other designated or consulting physician as outlined in the discharge instructions. The patient and/or caregivers are agreeable to this plan of care and follow-up instructions have been explained in detail. The patient and/or caregivers have received these instruction. The patient/and or caregivers are aware that any significant change in condition or worsening of symptoms demarcus uld prompt an immediate return to this or the closest emergency department or call 911. Forms: Work/School Release Form
[2021-02-02] MEDS ORDERED: MORPHINE SULFATE 4 MG INJ IV ONE (14:56)
[2021-02-02] MEDS ORDERED: Zofran 4 MG/2 ML VIAL IV ONE (14:57)
[2021-02-02] MEDS ORDERED: Sodium Chloride 0.9% 1000 ML 1,000 ML IV SCH (15:00)
[2021-02-02] MEDS ORDERED: Sodium Chloride 0.9% 1000 ML 1,000 ML ONE (15:00)
[2021-02-02] MEDS ORDERED: MORPHINE SULFATE 4 MG INJ ONE (15:00)
[2021-02-02] MEDS ORDERED: Zofran 4 MG/2 ML VIAL ONE (15:00)
[2021-02-02 15:07] LABS: ALBUMIN 4.4 g/dL (3.5-5.0); ALKALINE PHOSPHATASE 59 U/L (38-126); ANION GAP 12.2 MEQ/L (5-15); Appearance SLIGHTLY CLOUDY (CLEAR); BLOOD UREA NITROGEN 19 mg/dL (9-20); Bilirubin NEGATIVE (NEGATIVE); Blood NEGATIVE Ery/ul (0-5); CHLORIDE 106 mmol/L (98-107); Calcium 9.4 mg/dL (8.4-10.2); Carbon Dioxide 24 mmol/L (22-30); EST GLOMERULAR FILTRATION RATE > 60.0 ML/MIN; Glucose 109 mg/dL (74-106); Glucose NEGATIVE (NEGATIVE); Ketones NEGATIVE (NEGATIVE); LIPASE 71 U/L (23-300); Leukocyte Esterase NEGATIVE (NEGATIVE); Mucus SLIGHT /HPF (NEGATIVE); Nitrite NEGATIVE (NEGATIVE); Protein,Urine Dip NEGATIVE (Negative); SGOT/AST 35 U/L (17-59); SGPT/ALT 47 U/L (0-50); SODIUM 137 mmol/L (137-145); Specific Gravity 1.029 (1.005-1.025); Total Protein 7.8 g/dL (6.3-8.2); Urobilinogen NEGATIVE mg/dL (0-1)
[2021-02-02 15:27] LABS: Absolute Neutrophil Ct (ANC) 6.07 (1.4-6.9); BASOPHIL % 0.2 % (0.0-0.4); Basophil (Absolute #) 0.02 (0-0.4); Eosinophil % 2.6 % (0.00-5.0); Eosinophil (Absolute #) 0.22 (0-0.5); Hematocrit 45.2 % (42-50); Hemoglobin 15.1 gm/dl (12.5-18.0); Mean Cell Volume 94.2 fl (78-100); Mean Corpuscular Hemoglobin 31.5 pg (26-32); Mean Corpuscular Hgb Concent. 33.4 g/dl (32-36); Mean Platelet Volume 12.1 fl (7.5-11.0); Monocyte (Absolute #) 0.53 (0.0-1.3); Monocytes % 6.4 % (0.0-12.0); Neutrophil % 72.8 % (36.0-66.0); Platelet Count 212 K/mm3 (150-450); Red Cell Distribution Width 13.1 % (11.5-14.0); White Blood Count 8.3 K/mm3 (4.0-10.5)
[2021-02-02 16:28] VITALS: BP 122/78
[2021-02-02 17:22] VITALS: PULSE 50
--- NOTE | 2021-02-02 17:23 | XRAY ---
Indication: Periumbilical pain. Right lower quadrant rebound tenderness. Multiple contiguous axial images obtained through the abdomen and pelvis using 80 cc Isovue 370 contrast. Comparison: June 20, 2020. Lung bases again demonstrates minimal dependent atelectasis. No infiltrate or effusion. Heart not enlarged. Noncontrasted stomach and bowel loops remain nonobstructed. Normal air-filled appendix. There is now mild diffuse scattered colonic fecal debris throughout. No free fluid/air. Stable benign-appearing chunky right adrenal calcifications. Remaining liver, gallbladder, pancreas, spleen, adrenal glands, kidneys, ureters, bladder, and aorta appear normal in CT appearance and attenuation. No pathologic retroperitoneal lymphadenopathy. Osseous structures intact with stable mild L4-L5 degenerative disc disease and benign right innominate bone lytic lesion. No ventral or inguinal hernias. Impression: 1. New diffuse fecal stasis. 2. Stable benign right adrenal calcifications and chronic bony findings. 3. Remaining CT abdomen/pelvis with contrast exam is negative.
== END 2021-02-02 18:31 | disposition home or self-care (01) ==
LOC: ED 13:32
DX: K59.00 Constipation, unspecified (principal); E27.49 Other adrenocortical insufficiency; J44.9 Chronic obstructive pulmonary disease, unspecified; R10.33 Periumbilical pain
CPT/HCPCS: 36000; 36415; 74177; 80053; 81001; 83690; 84484; 85025; 93005; 96374; 96375; 99284; J2270; J2405

== ENCOUNTER 2021-03-15 08:46 | Emergency (ER) | payer SELFPAY ==
--- NOTE | 2021-03-15 08:49 | ERPHSYRPT ---
- History of Present Illness Time Seen by Provider: 03/15/21 08:48 Source: patient Exam Limitations: no limitations Physician History: This is a 50-year-old white male who wears contacts and there was sweeping and vacuuming around the home yesterday and he recall specifically getting dust into his left eye. He took the contact out and this did not help his symptoms. He did use Visine which did get some of the red coloration out of his eye but he still has been having watering eye and pain. Timing/Duration: yesterday Location: left eye Severity: moderate Apparent Injury: no Associated Symptoms: sensitivity to light, redness, foreign body sensation Visual Assistive Devices: Contacts Chemical Exposure: No Trauma: No Welding Arc/Tanning Bed Exposure: No Allergies/Adverse Reactions: Penicillins Allergy (Verified 02/02/21 14:27) Hx Tetanus, Diphtheria Vaccination/Date Given: Yes Hx Influenza Vaccination/Date Given: No Hx Pneumococcal Vaccination/Date Given: No Travel Risk - International Travel Have you traveled outside of the country in past 3 weeks: No - Coronavirus Screening Are you exhibiting any of the following symptoms?: No Close contact with a COVID-19 positive Pt in past 14-21 Days: No - Vaccine Status Have you recieved a Covid-19 vaccination: Yes Training Personnel Supervisor: Unknown - Vaccination Dates Dates if Unknown: May Comment: Unsure of date - Review of Systems Constitutional: No Symptoms Eyes: Eye Pain, Eye Redness, Itchy, Foreign Body Sensation Ears, Nose, & Throat: No Symptoms Respiratory: No Symptoms Cardiac: No Symptoms Abdominal/Gastrointestinal: No Symptoms Genitourinary Symptoms: No Symptoms Musculoskeletal: No Symptoms Skin: No Symptoms Neurological: No Symptoms Psychological: No Symptoms Endocrine: No Symptoms Hematologic/Lymphatic: No Symptoms Immunological/Allergic: No Symptoms All Other Systems: Reviewed and Negative - Past Medical History Pertinent Past Medical History: Yes Neurological History: No Pertinent History ENT History: No Pertinent History Cardiac History: No Pertinent History Respiratory History: COPD Endocrine Medical History: No Pertinent History Musculoskeletal History: No Pertinent History GI Medical History: No Pertinent History History: No Pertinent History Psycho-Social History: No Pertinent History Male Reproductive Disorders: No Pertinent History - Past Surgical History Past Surgical History: Yes Neuro Surgical History: No Pertinent History Cardiac: No Pertinent History Respiratory: No Pertinent History Gastrointestinal: Hernia Repair Genitourinary: No Pertinent History Musculoskeletal: Orthopedic Surgery Male Surgical History: No Pertinent History - Social History Smoking Status: Former smoker How long have you smoked: 25 YEARS Exposure to second hand smoke: No Drug Use: marijuana Patient Lives Alone: No Significant Family History: no pertinent family hx - Nursing Vital Signs Nursing Vital Signs: Initial Vital Signs Temperature 97.5 F 03/15/21 09:05 Pulse Rate 50 L 03/15/21 09:05 Respiratory Rate 16 03/15/21 09:05 Blood Pressure 124/85 03/15/21 09:05 O2 Sat by Pulse Oximetry 99 03/15/21 09:05 Pain Scale Pain Intensity 7 - Physical Exam General Appearance: no apparent distress, alert, anxiety Eye Exam: right eye: normal inspection, left eye: conjunctival inflammation, bilateral eye: PERRL, EOMI Ears, Nose, Throat Exam: normal ENT inspection, moist mucous membranes Neck Exam: normal inspection, non-tender, supple, full range of motion Respiratory Exam: airway intact, No chest tenderness, No respiratory distress Gastrointestinal Exam: No tenderness Extremity Exam: normal inspection, normal range of motion, pelvis stable Neurologic: alert, oriented x 3, cooperative, compliance coordinator II-XII nml as tested, normal mood/affect, nml cerebellar function, nml station & gait, sensation nml Skin Exam: normal color, warm, dry Lymphatic: No adenopathy SpO2 Interpretation: normal O2 Delivery: Room Air - Course Nursing assessment & vital signs reviewed: Yes Ordered Tests: Medication Summary Discontinued Medications Generic Name Dose Route Start Last Admin Trade Name Freq PRN Reason Stop Dose Admin Tetracaine HCl 4 ml 03/15/21 09:41 Tetracaine 0.5% Steri-Unit Tran OP 03/15/21 09:42 STAT STA - Progress Progress: improved Counseled pt/family regarding: diagnosis, need for follow-up - Departure Departure Disposition: Home Clinical Impression: Acute left eye pain, Conjunctivitis, left eye Condition: Stable Critical Care Time: No Referrals: SUKHWINDER ROSARIO MD [Primary Care Provider] - Additional Instructions: Take medication as prescribed. Between the erythromycin ophthalmologic ointment use a eye refreshing/moistening drops. Stop the Visine. Prescriptions: Hydrocodone/APAP 5/325 [[place] 5/325 mg] 1 each PO Q12H PRN PRN #5 tablet MDD 2 PRN Reason: Pain Erythromycin Base 3.5 gm [Erythromycin 3.5 GM OPHTH.] 3.5 gm OP QID #1 tube
[2021-03-15] MEDS ORDERED: TETRACAINE 0.5% STERI-UNIT SOL OP STA (09:41)
[2021-03-15] MEDS ORDERED: TETRACAINE 0.5% STERI-UNIT SOL OP ONE (10:10)
[2021-03-15 10:16] VITALS: BP 122/84; PULSE 53; O2SAT 98
== END 2021-03-15 10:27 | disposition home or self-care (01) ==
LOC: ED 08:46
DX: H57.12 Ocular pain, left eye (principal); H10.89 Other conjunctivitis
CPT/HCPCS: 99283

== ENCOUNTER 2021-05-15 19:30 | Emergency (ER) | payer SELFPAY ==
--- NOTE | 2021-05-15 20:05 | ERPHSYRPT ---
- History of Present Illness Time Seen by Provider: 05/15/21 20:01 Source: patient, family Exam Limitations: no limitations Physician History: pt has hx COPD but on no treatment and has had some cough and sobreath for 2 weeks - no Hx of CAD and no reported chest pain. Productive cough by hx consistent with URI/COPD. abd nontender. chest with wheezes bilaterally. Timing/Duration: week(s) Cough Quality/Degree: productive cough Possible Cause: frequent episodes Modifying Factors: Improves With: coughing Associated Symptoms: cough, shortness of breath, wheezing Allergies/Adverse Reactions: Penicillins Allergy (Severe, Verified 05/15/21 20:20) Anaphylactic Reaction Hx Tetanus, Diphtheria Vaccination/Date Given: Yes Hx Influenza Vaccination/Date Given: No Hx Pneumococcal Vaccination/Date Given: No Travel Risk - Vaccine Status Have you recieved a Covid-19 vaccination: Yes Industrial Therapist: Unknown - Vaccination Dates Dates if Unknown: May Comment: Unsure of date - Review of Systems Constitutional: No Fever, No Chills Eyes: No Symptoms Ears, Nose, & Throat: No Symptoms Respiratory: Wheezing, No Cough, No Dyspnea Cardiac: No Chest Pain, No Edema, No Syncope Abdominal/Gastrointestinal: No Abdominal Pain, No Nausea, No Vomiting, No Diarrhea Genitourinary Symptoms: No Dysuria Musculoskeletal: No Back Pain, No Neck Pain Skin: No Symptoms, No Rash Neurological: No Dizziness, No Focal Weakness, No Sensory Changes Psychological: No Symptoms Endocrine: No Symptoms Hematologic/Lymphatic: No Symptoms Immunological/Allergic: No Symptoms All Other Systems: Reviewed and Negative - Past Medical History Pertinent Past Medical History: Yes Neurological History: No Pertinent History ENT History: No Pertinent History Cardiac History: No Pertinent History Respiratory History: COPD Endocrine Medical History: No Pertinent History Musculoskeletal History: No Pertinent History GI Medical History: No Pertinent History History: No Pertinent History Psycho-Social History: No Pertinent History Male Reproductive Disorders: No Pertinent History - Past Surgical History Past Surgical History: Yes Neuro Surgical History: No Pertinent History Cardiac: No Pertinent History Respiratory: No Pertinent History Gastrointestinal: Hernia Repair Genitourinary: No Pertinent History Musculoskeletal: Orthopedic Surgery Male Surgical History: No Pertinent History - Social History Smoking Status: Former smoker How long have you smoked: 25 YEARS Exposure to second hand smoke: No Drug Use: marijuana Patient Lives Alone: No Significant Family History: no pertinent family hx - Nursing Vital Signs Nursing Vital Signs: Initial Vital Signs Temperature 98.0 F 05/15/21 19:58 Pulse Rate 64 05/15/21 19:58 Respiratory Rate 20 05/15/21 19:58 Blood Pressure 122/77 05/15/21 19:58 O2 Sat by Pulse Oximetry 97 05/15/21 19:58 Pain Scale Pain Intensity 6 - Physical Exam General Appearance: no apparent distress, alert Eye Exam: PERRL/EOMI, eyes nml inspection Ears, Nose, Throat Exam: normal ENT inspection, TMs normal, pharynx normal, moist mucous membranes Neck Exam: normal inspection, non-tender, supple, full range of motion Respiratory Exam: normal breath sounds, lungs clear, No respiratory distress Cardiovascular Exam: regular rate/rhythm, normal heart sounds Gastrointestinal/Abdomen Exam: soft, No tenderness Rectal Exam: deferred Back Exam: normal inspection, No CVA tenderness, No vertebral tenderness Extremity Exam: normal inspection, normal range of motion Neurologic Exam: alert, oriented x 3, cooperative, normal mood/affect, sensation nml, No motor deficits Skin Exam: normal color, warm, dry, No rash Lymphatic Exam: No adenopathy - Course Nursing assessment & vital signs reviewed: Yes EKG Interpreted by Me: Sinus Rhythm, NORMAL AXIS, NORMAL INTERVALS, NORMAL QRS, Non-specific ST Changes, Other (low voltage and poor r wave prog. ) Ordered Tests: Active Orders 24 hr Category Date Time Status CHEST 2 VIEWS (PA AND LAT) Stat Exams 05/15/21 20:08 Ordered CBC W DIFF Stat Lab 05/15/21 20:34 Completed TROPONIN Q3H Lab 05/15/21 20:34 Completed TROPONIN Q3H Lab 05/15/21 23:15 Ordered TROPONIN Q3H Lab 05/16/21 02:15 Ordered TROPONIN Q3H Lab 05/16/21 05:15 Ordered TROPONIN Q3H Lab 05/16/21 08:15 Ordered Respiratory Therapy Assessment DAILY RT 05/15/21 20:33 Completed Medication Summary Discontinued Medications Generic Name Dose Route Start Last Admin Trade Name Freq PRN Reason Stop Dose Admin Albuterol/Ipratropium 3 ml 05/15/21 20:08 05/15/21 20:34 Duoneb 0.5-3 Mg/3 Ml Neb IH 05/15/21 20:09 3 ml STAT ONE Administration Albuterol/Ipratropium Confirm 05/15/21 20:32 Duoneb 0.5-3 Mg/3 Ml Neb Administered 05/15/21 20:33 Dose 3 ml IH .STK-MED ONE Azithromycin 500 mg 05/15/21 20:11 05/15/21 20:36 Zithromax 250 Mg Tablet PO 05/15/21 20:12 500 mg STAT ONE Administration Azithromycin Confirm 05/15/21 20:34 Zithromax 250 Mg Tablet Administered 05/15/21 20:35 Dose 500 mg .ROUTE .STK-MED ONE Prednisone 60 mg 05/15/21 20:08 05/15/21 20:36 Deltasone 20 Mg PO 05/15/21 20:09 60 mg STAT ONE Administration Prednisone Confirm 05/15/21 20:35 Deltasone 20 Mg Administered 05/15/21 20:36 Dose 60 mg .ROUTE .STK-MED ONE Lab/Rad Data: Laboratory Result Diagrams 05/15/21 20:34 Laboratory Results 05/15/21 05/15/21 Range/Units 20:34 20:34 WBC 9.2 (4.0-10.5) K/mm3 RBC 4.61 (4.1-5.6) M/mm3 Hgb 14.8 (12.5-18.0) gm/dl Hct 44.3 (42-50) % MCV 96.1 (78-100) fl MCH 32.1 H (26-32) pg MCHC 33.4 (32-36) g/dl RDW 13.3 (11.5-14.0) % Plt Count 190 (150-450) K/mm3 MPV 11.6 H (7.5-11.0) fl Gran % 67.0 H (36.0-66.0) % Eos # (Auto) 0.13 (0-0.5) Absolute Lymphs (auto) 1.88 (1.0-4.6) Absolute Monos (auto) 1.00 (0.0-1.3) Lymphocytes % 20.5 L (24.0-44.0) % Monocytes % 10.9 (0.0-12.0) % Eosinophils % 1.4 (0.00-5.0) % Basophils % 0.2 (0.0-0.4) % Absolute Granulocytes 6.16 (1.4-6.9) Basophils # 0.02 (0-0.4) Troponin I < 0.012 (0.000-0.034) ng/mL - Progress Progress: improved, re-examined Air Movement: good Progress Note: 05/15/21 21:12 pt wishes to decline testing in ER at this time- he is advised that this limits detection of pathology and that a serious cardiac, vascular pulmonary or other condition and he has the capcity to make this choice. Blood Culture(s) Obtained: No Counseled pt/family regarding: lab results, diagnosis, need for follow-up, rad results - Departure Departure Disposition: Home Clinical Impression: COPD with acute exacerbation, Person under investigation for COVID-19 Condition: Good Critical Care Time: No Referrals: SUKHWINDER ROSARIO MD [Primary Care Provider] - Instructions: Chronic Obstructive Pulmonary Disease, Cough, Adult (DC), Coronavirus Disease 2019 (COVID-19) (DC) Additional Instructions: followup with your this week. Quarantine until Covid result is back and after as indicated. return meantime if not improving or other concerns, as the limited testing performed, there could be other things happening. Prescriptions: Azithromycin 250 mg PO DAILY #4 tablet Methylprednisolone Packet [Medrol Dosepack] 4 mg PO UD #30 packet
[2021-05-15] MEDS ORDERED: DELTASONE 20 MG PO ONE (20:08)
[2021-05-15] MEDS ORDERED: DUONEB 0.5-3 MG/3 ml Neb IH ONE ×2 (20:08→20:32)
[2021-05-15] MEDS ORDERED: Zithromax 250 MG TABLET PO ONE (20:11)
[2021-05-15] MEDS ORDERED: Zithromax 250 MG TABLET ONE (20:34)
[2021-05-15] MEDS ORDERED: DELTASONE 20 MG ONE (20:35)
[2021-05-15 20:42] LABS: Absolute Neutrophil Ct (ANC) 6.16 (1.4-6.9); BASOPHIL % 0.2 % (0.0-0.4); Basophil (Absolute #) 0.02 (0-0.4); Eosinophil % 1.4 % (0.00-5.0); Eosinophil (Absolute #) 0.13 (0-0.5); Hematocrit 44.3 % (42-50); Hemoglobin 14.8 gm/dl (12.5-18.0); Lymphocyte (Absolute #) 1.88 (1.0-4.6); Lymphocytes % 20.5 % (24.0-44.0); Mean Cell Volume 96.1 fl (78-100); Mean Corpuscular Hemoglobin 32.1 pg (26-32); Mean Corpuscular Hgb Concent. 33.4 g/dl (32-36); Mean Platelet Volume 11.6 fl (7.5-11.0); Monocytes % 10.9 % (0.0-12.0); Platelet Count 190 K/mm3 (150-450); Red Blood Count 4.61 M/mm3 (4.1-5.6); Red Cell Distribution Width 13.3 % (11.5-14.0); White Blood Count 9.2 K/mm3 (4.0-10.5)
[2021-05-15 21:25] VITALS: O2SAT 97
[2021-05-15 21:58] VITALS: BP 118/82; PULSE 72
== END 2021-05-15 21:58 | disposition home or self-care (01) ==
LOC: ED 19:30
DX: J44.1 Chronic obstructive pulmonary disease with (acute) exacerbation (principal); R05 Cough; R06.02 Shortness of breath
CPT/HCPCS: 36415; 84484; 85025; 94640; 99283; A9270-GY